=== PATIENT | female | born 1955 | race Caucasian/White ===

== ENCOUNTER → 2017-11-17 09:35 | Outpatient (CLI) | payer OTHER, SELFPAY ==
[2017-11-17 10:16] LABS: Add Manual Diff / Slide Review NO; Basophils Percent Auto 0.9 % (0-2); Eosinophils Percent Auto 2.8 % (2-4); Hematocrit 39.8 % (36-46); Hemoglobin 13.6 g/dL (12.0-16.0); Lymphocytes Percent Auto 34.4 % (25-40); Mean Corpuscular HGB Conc 34.3 % (30-36); Mean Corpuscular Hemoglobin 31.6 PG (26-34); Mean Corpuscular Volume 92.1 fL (80-100); Monocytes Percent Auto 9.5 % (3-14); Neutrophils Absolute Auto 2300 /uL (3000-5900); Neutrophils Percent Auto 52.4 % (50-75); Platelet Count 249 X10^3/uL (150-400); Red Blood Cell Count 4.32 X10^6/uL (4.0-5.2); Red Cell Distribution Width 12.9 % (11.6-14.8); White Blood Cell Count 4.4 X10^3/uL (4.5-11.0)
[2017-11-17 13:58] LABS: Erythrocyte Sedimentation Rate 4 MM/HR (0-20)
== END ==
PROVIDERS: Family Provider Nurse Practitioner Family; PCP Nurse Practitioner Family; Visit Provider Internal Medicine Cardiovascular Disease
DX: I50.9 Heart failure, unspecified (principal)
CPT/HCPCS: 36415; 85025; 85651; 87040

== ENCOUNTER 2018-02-14 09:41 | Emergency (ER) | payer OTHER, SELFPAY ==
[2018-02-14 09:50] VITALS: BP 170/86; PULSE 79; RESP 12; TEMP 36.4; O2SAT 99
--- NOTE | 2018-02-14 10:02 | ED.ABDPAIN ---
HPI - Abdominal Pain General Chief Complaint: Abdominal Pain Stated Complaint: pain under breast,thinks its her gallbladder Time Seen by Provider: 02/14/18 10:02 Source: patient Mode of arrival: ambulatory Limitations: no limitations History of Present Illness HPI narrative: Patient is a 63-year-old female who presents with left upper quadrant pain and thoracic back pain ongoing for the last 3 weeks. It never really goes away but does have worsening episodes. She denies chest pain at though she does have pain under her left breast. She has no shortness of breath or help heart palpitations. No dizziness lightheadedness nausea or vomiting. Her thoracic pain is seems to be under her left shoulder blade it does get worse when she lifts her left arm but does not get better when she lowers it. She has some numbness tingling in her hands she denies any injury. Related Data Home Medications Medication Instructions Recorded Confirmed aspirin 325 mg PO DAILY 02/14/18 02/14/18 atorvastatin [Lipitor] 20 mg PO DAILY 02/14/18 02/14/18 Previous Rx's Medication Instructions Recorded hydrochlorothiazide 12.5 mg PO QDAY #90 cap 03/08/16 losartan 50 mg PO QDAY #90 tab 06/30/16 tramadol 50 mg PO Q6H PRN #10 tab 02/14/18 Allergies Allergy/AdvReac Type Severity Reaction Status Date / Time No Known Drug Allergies Allergy Verified 02/14/18 10:07 Review of Systems Review of Systems All systems reviewed & are unremarkable except as noted in HPI and below Constitutional Denies chills, Denies fever(s), Denies lethargy and Denies weakness Cardiovascular Reports as per HPI, Denies dyspnea and Denies dyspnea on exertion Respiratory Denies cough, Denies dyspnea, Denies dyspnea on exertion and Denies wheezing Gastrointestinal Gastrointestinal: Denies abdominal pain, Denies change in bowel habits, Denies diarrhea, Denies nausea and Denies vomiting Musculoskeletal Denies back pain, Denies muscle weakness, Denies numbness and Denies tingling Integumentary/Breasts Denies pruritus, Denies erythema, Denies rash and Denies wounds Neurologic Denies numbness, Denies tingling and Denies weakness Allergic/Immunologic Denies wheezing PFSH Medical History Mitral valve disorder (Acute) Surgical History Hx of mitral valve replacement (Acute) Family History Brother Hypertension High cholesterol Brother Age: 53 Hypertension High cholesterol Father History of kidney cancer Heart disease Hypertension High cholesterol Grandfather Heart disease Mother Hypertension High cholesterol Grandfather Heart disease Sister Age: 63 Hypertension High cholesterol Sister Age: 67 Hypertension High cholesterol Exam Initial Vital Signs Initial Vital Signs: Vital Signs Temperature 97.5 F L 02/14/18 09:50 Pulse Rate 79 02/14/18 09:50 Respiratory Rate 12 02/14/18 09:50 Blood Pressure 170/86 H 02/14/18 09:50 Pulse Oximetry 99 02/14/18 09:50 GENERAL: Well-appearing, well-nourished and in no acute distress. HEENT: Head atraumatic,EOMI, pupils reactive, face symmetric, neck is supple no JVD CARDIOVASCULAR: Regular rate and rhythm without murmurs, rubs or gallops. Sternal scar on chest nontender RESPIRATORY: Breath sounds equal bilaterally, no wheezes rales or rhonchi. ABDOMEN: Soft, nontender. Normoactive bowel sounds all 4 quadrants. No guarding or rebound. Negative Laurent sign EXTREMITIES: Normal range of motion, no clubbing or edema. Neurovascularly intact BACK: No vertebral tenderness no step-offs. Mild pain to palpation under left scapular region NEUROLOGICAL: Alert and oriented x4.Normal gait and speech. Cranial nerves II through XII grossly intact. SKIN: Warm, dry, no laceration, no petechiae, no rashes or lesions. Scores HEART Score Heart Score history: Slightly Suspicious Heart Score EKG: Normal Heart Score Age: 45-64 years old Heart Score risk factors: 1-2 risk factors Heart Score troponin: < or = to normal limit Heart Score Total: 2 Course Orders Ordered: Discontinued Medications Aspirin (Aspirin Chew) 324 mg PO NOW ONE Stop: 02/14/18 10:12 Last Admin: 02/14/18 10:34 Dose: 324 mg Sodium Chloride (Normal Saline 0.9%) 1,000 mls @ 150 mls/hr IV CONT ANEL Last Infusion: 02/14/18 12:52 Dose: 0 mls/hr Admin: 02/14/18 10:34 Dose: 150 mls/hr Ketorolac Tromethamine (Toradol) 30 mg IV NOW ONE Stop: 02/14/18 11:42 Last Admin: 02/14/18 11:42 Dose: 30 mg Nitroglycerin (Nitrostat) 0.4 mg SL [id number] PRN PRN Reason: Chest Pain Last Admin: 02/14/18 10:34 Dose: 0.4 mg Vital Signs - 8 hr 02/14/18 09:50 02/14/18 10:34 02/14/18 10:37 Temperature 97.5 F L Pulse Rate 79 66 67 Respiratory Rate 12 18 Blood Pressure 170/86 H 132/81 Blood Pressure [Left Arm] 132/81 Pulse Oximetry 99 100 02/14/18 11:00 02/14/18 11:21 02/14/18 12:03 Temperature Pulse Rate 69 65 68 Respiratory Rate 18 18 Blood Pressure 104/85 Blood Pressure [Left Arm] 104/85 131/86 Pulse Oximetry 97 100 MDM - Abdominal Pain Lab Data Attestation: I reviewed the patient's lab results. Result diagrams: 02/14/18 10:30 02/14/18 10:30 Lab Results 02/14/18 02/14/18 Range/Units 10:30 10:30 WBC 5.1 (4.5-11.0) X10^3/uL RBC 4.59 (4.0-5.2) X10^6/uL Hgb 14.3 (12.0-16.0) g/dL Hct 42.0 (36-46) % MCV 91.7 (80-100) fL MCH 31.1 (26-34) PG MCHC 34.0 (30-36) % RDW 13.1 (11.6-14.8) % Plt Count 258 (150-400) X10^3/uL Neut % (Auto) 54.7 (50-75) % Lymph % (Auto) 33.9 (25-40) % [place] % (Auto) 9.2 (3-14) % Eos % (Auto) 1.2 L (2-4) % Baso % (Auto) 1.0 (0-2) % Neut # (Auto) 2800 L (8794-9044) /uL Sodium 146 H (137-145) mmol/L Potassium 3.9 (3.4-5.1) mmol/L Chloride 103 (98-107) mmol/L Carbon Dioxide 32 (22-32) mmol/L BUN 18 H (7-17) mg/dL Creatinine 0.60 (0.52-1.04) mg/dL Estimated GFR > 60.0 (>60) mL/min BUN/Creatinine Ratio 30.0 H (6-22) Glucose 132 H (80-110) mg/dL Calcium 9.9 (8.4-10.2) mg/dL Total Bilirubin 0.7 (0.2-1.3) mg/dL AST 25 (14-36) IU/L ALT 31 (9-52) IU/L Alkaline Phosphatase 78 (38-126) U/L Total Creatine Kinase 73 (30-135) U/L Troponin I < 0.012 (0.01-0.034) ng/mL B-Natriuretic Peptide < 100.0 (<100) Total Protein 8.3 H (6.3-8.2) g/dL Albumin 4.7 (3.5-5.0) g/dL Globulin 3.6 (1.7-4.1) g/dL Albumin/Globulin Ratio 1.3 (1.0-2.8) Lipase 72 (23-300) U/L Imaging Data Chest x-ray: Radiologist's impression: PROCEDURE: XR CHEST 1V INDICATIONS: chest pain TECHNIQUE: One view of the chest was acquired. COMPARISON: [facility], , CHEST 2 VIEW, 07/05/2012, 15:58. FINDINGS: Surgical changes and devices: Sternal wires. Lungs and pleura: No pleural effusions or pneumothorax. Lungs are clear. Mediastinum: Mediastinal contours appear normal. Heart size is slightly prominent. Bones and chest wall: No suspicious bony lesions. Overlying soft tissues appear unremarkable. IMPRESSION: No acute pulmonary process. Dictated by: Zoraida Sheikh M.D. on 02/14/2018 at 11:02 ECG Data Attestation: I personally reviewed and interpreted this ECG as follows: Prior ECG tracings: not available for review Interpretation: normal sinus rhythm rate 75 no T-wave inversions or ST changes compare MDM Narrative Medical decision making narrative: the patient is having some left upper quadrant pain ongoing for 3 weeks. Troponin EKG chest x-ray are negative. It also is worse with breathing and movement which is consistent with musculoskeletal pain. she is states that she has been taking ibuprofen 800 mg and Tylenol on a regular basis of for 1-2 weeks. Tramadol is offered to her, which she accepts. The pain also may be related to the beginnings of ulcer or gastritis. Recommend [id number] omeprazole I have discussed treatment plan with both patient and all questions have been addressed. Discharge Plan Departure Patient Disposition: Home Clinical Impression: Atypical chest pain Discharge Date/Time: 02/14/18 12:53 Interventions: ED Discharge Assessment Last Done: 02/14/18 12:53 Instructions: DI for Atypical Chest Pain Activity Restrictions/Additional Instructions: *You have been diagnosed with atypical chest pain *What to do: This is likely musculoskeletal or gastritis *Continue to take medications as directed Tramadol 1 tablet every 6 hr if needed for severe pain, this may be combined with Tylenol if needed Tylenol 500-650 mg every 4-6 hours if needed for [id number] pain Omeprazole 20 mg once a day 30 min prior to meal *Follow up with your primary care provider in 2-3 days *Return to ER if you should have increasing pain, shortness of breath, passing or any new, worsening or concerning symptoms Prescriptions: New tramadol 50 mg tablet 50 mg PO Q6H PRN (Reason: pain) Qty: 10 RF: 0 No Action hydrochlorothiazide 12.5 MG capsule 12.5 mg PO QDAY Qty: 90 RF: 0 losartan 50 MG tablet 50 mg PO QDAY Qty: 90 RF: 3 atorvastatin [Lipitor] 20 MG tablet 20 mg PO DAILY RF: 0 aspirin 325 mg Tablet 325 mg PO DAILY RF: 0 Referrals: Eliana Donato ARNP [Primary Care Provider] -
--- NOTE | 2018-02-14 10:11 | DI.RAD.S_ITS ---
PROCEDURE: XR CHEST 1V INDICATIONS: chest pain TECHNIQUE: One view of the chest was acquired. COMPARISON: [facility] , CHEST 2 VIEW, 07/05/2012, 15:58. FINDINGS: Surgical changes and devices: Sternal wires. Lungs and pleura: No pleural effusions or pneumothorax. Lungs are clear. Mediastinum: Mediastinal contours appear normal. Heart size is slightly prominent. Bones and chest wall: No suspicious bony lesions. Overlying soft tissues appear unremarkable. IMPRESSION: No acute pulmonary process. Dictated by: Zoraida Sheikh M.D. on 02/14/2018 at 11:02 Approved by: Zoraida Sheikh M.D. on 02/14/2018 at 11:02
[2018-02-14 10:34] VITALS: BP 132/81; PULSE 66
[2018-02-14] MEDS: ASPIRIN 81 MG TAB 324 MG PO (10:34)
[2018-02-14] MEDS: SODIUM CHLORIDE 0.9% 1,000 ML 150 ML IV (10:34)
[2018-02-14] MEDS: NITROGLYCERIN 0.4 MG SL TAB SL (10:34)
[2018-02-14 10:37] VITALS: BP 132/81; PULSE 67; RESP 18; O2SAT 100
[2018-02-14 10:41] LABS: Add Manual Diff / Slide Review NO; Eosinophils Percent Auto 1.2 % (2-4); Hemoglobin 14.3 g/dL (12.0-16.0); Lymphocytes Percent Auto 33.9 % (25-40); Mean Corpuscular Hemoglobin 31.1 PG (26-34); Mean Corpuscular Volume 91.7 fL (80-100); Monocytes Percent Auto 9.2 % (3-14); Neutrophils Absolute Auto 2800 /uL (3000-5900); Neutrophils Percent Auto 54.7 % (50-75); Platelet Count 258 X10^3/uL (150-400); Red Blood Cell Count 4.59 X10^6/uL (4.0-5.2); Red Cell Distribution Width 13.1 % (11.6-14.8); White Blood Cell Count 5.1 X10^3/uL (4.5-11.0)
[2018-02-14 10:51] LABS: Alanine Aminotransferase 31 IU/L (9-52); Albumin 4.7 g/dL (3.5-5.0); Albumin Globulin Ratio 1.3 (1.0-2.8); Alkaline Phosphatase 78 U/L (38-126); Aspartate Aminotransferase 25 IU/L (14-36); Bilirubin Total 0.7 mg/dL (0.2-1.3); Blood Urea Nitrogen 18 mg/dL (7-17); Calcium 9.9 mg/dL (8.4-10.2); Carbon Dioxide 32 mmol/L (22-32); Chloride 103 mmol/L (98-107); Creatine Kinase 73 U/L (30-135); Estimated Glomerular Filt Rate > 60.0 mL/min (>60); Globulin 3.6 g/dL (1.7-4.1); Glucose 132 mg/dL (80-110); HEMOLYSIS < 15 (0-50); Lipase 72 U/L (23-300); Potassium 3.9 mmol/L (3.4-5.1); Sodium 146 mmol/L (137-145); Total Protein 8.3 g/dL (6.3-8.2)
[2018-02-14 11:00] VITALS: BP 104/85; PULSE 69; RESP 18; O2SAT 97
[2018-02-14 11:03] LABS: Troponin I < 0.012 ng/mL (0.01-0.034)
[2018-02-14 11:15] LABS: B Type Natriuretic Peptide < 100.0 (<100)
[2018-02-14 11:21] VITALS: BP 104/85; PULSE 65
[2018-02-14] MEDS: KETOROLAC 60 MG/2 ML VIAL 30 MG IV (11:42)
[2018-02-14 12:03] VITALS: BP 131/86; PULSE 68; RESP 18; O2SAT 100
== END 2018-02-14 12:53 | disposition home or self-care (01) ==
PROVIDERS: Emergency Provider Emergency Medicine; Family Provider Nurse Practitioner Family; PCP Nurse Practitioner Family; Referring Provider Family Medicine
DX: R07.89 Other chest pain (principal)
CPT/HCPCS: 71045; 80053; 82550; 82553; 83690; 83880; 84484; 85025; 93005; 93010; 96361; 96374; 99283; 99285; J1885

== ENCOUNTER → 2018-10-05 09:39 | Outpatient (CLI) | payer OTHER, SELFPAY ==
--- NOTE | 2018-10-05 | DI.MG.S_ITS ---
BILATERAL DIGITAL SCREENING MAMMOGRAM 3D/2D WITH CAD: 10/05/2018 CLINICAL: Routine screening. Family history of breast cancer. Comparison is made to exams dated: 07/02/2016 mammogram - [facility], 03/07/2013 mammogram - [facility], and 03/20/2009 mammogram - [facility]. The tissue of both breasts is extremely dense, which lowers the sensitivity of mammography. Current study was also evaluated with a Computer Aided Detection (CAD) system. There is a benign biopsy clip in the right breast. There is a mole marker on both breasts. No significant masses, calcifications, or other findings are seen in either breast. There has been no significant interval change. IMPRESSION: NEGATIVE There is no mammographic evidence of malignancy. A 1 year screening mammogram is recommended. This exam was interpreted at Station ID: [id number]. NOTE: For mammograms, a report in lay terms will be sent to the patient. Approximately 15% of breast malignancies will not be visualized mammographically. In the management of a palpable breast mass, a negative mammogram must not discourage biopsy of a clinically suspicious lesion. Electronically Signed By: Gurinder jennings/phuong:10/05/2018 18:59:43 copy to: TITO SUTTON letter sent: Normal Exam ACR BI-RADS Category 1: Negative 3341F
== END ==
PROVIDERS: Family Provider Family Medicine; PCP Nurse Practitioner Family; Visit Provider Nurse Practitioner Family
DX: Z12.31 Encounter for screening mammogram for malignant neoplasm of breast (principal); Z80.3 Family history of malignant neoplasm of breast
CPT/HCPCS: 77063; 77067

== ENCOUNTER → 2021-02-27 08:11 | Outpatient (CLI) | payer MEDICARE, OTHER, SELFPAY ==
[2021-02-27 20:32] LABS: Rheumatoid Factor < 8.6 IU/mL (<12.0)
== END ==
PROVIDERS: Family Provider Family Medicine; PCP Family Medicine; Visit Provider Family Medicine
DX: M25.50 Pain in unspecified joint (principal)
CPT/HCPCS: 86430

== ENCOUNTER → 2021-04-13 10:31 | Outpatient (CLI) | payer MEDICARE, OTHER, SELFPAY ==
[2021-04-13 18:56] LABS: Add Manual Diff / Slide Review NO; Basophils Absolute Auto 0 /uL (0-100); Basophils Percent Auto 0.9 % (0-2); Eosinophils Absolute Auto 100 /uL (0-450); Eosinophils Percent Auto 1.6 % (2-4); Hematocrit 40.6 % (36-46); Hemoglobin 13.7 g/dL (12.0-16.0); Lymphocytes Absolute Auto 1600 /uL (1100-4500); Lymphocytes Percent Auto 33.5 % (25-40); Mean Corpuscular HGB Conc 33.6 % (30-36); Mean Corpuscular Hemoglobin 30.6 PG (26-34); Mean Corpuscular Volume 90.9 fL (80-100); Monocytes Absolute Auto 500 /uL (0-900); Monocytes Percent Auto 9.7 % (3-14); Neutrophils Absolute Auto 2600 /uL (1500-7000); Neutrophils Percent Auto 54.3 % (50-75); Platelet Count 261 X10^3/uL (150-400); Red Blood Cell Count 4.47 X10^6/uL (4.0-5.2); White Blood Cell Count 4.8 X10^3/uL (4.5-11.0)
[2021-04-13 19:08] LABS: Alanine Aminotransferase 26 IU/L (<35); Albumin 4.7 g/dL (3.5-5.0); Albumin Globulin Ratio 1.2 (1.0-2.8); Alkaline Phosphatase 91 U/L (38-126); Aspartate Aminotransferase 33 IU/L (14-36); BUN Creatinine Ratio 22.4 (6-22); Bilirubin Total 0.7 mg/dL (0.2-1.3); Blood Urea Nitrogen 15 mg/dL (7-17); Carbon Dioxide 32 mmol/L (22-32); Chloride 100 mmol/L (98-107); Cholesterol 274 mg/dL (140-199); Estimated Glomerular Filt Rate > 60.0 mL/min (>60); Globulin 3.9 g/dL (1.7-4.1); Glucose 137 mg/dL (80-110); HDL Cholesterol 78 mg/dL (40-60); HEMOLYSIS < 15 (0-50); LDL Cholesterol Calculated 173 mg/dL (<100); Potassium 4.1 mmol/L (3.4-5.1); Sodium 141 mmol/L (137-145); Total Protein 8.6 g/dL (6.3-8.2); Triglycerides 114 mg/dL (35-150)
[2021-04-13 19:11] LABS: Hemoglobin A1C% w Est Avg Glu 6.4 % (4.0-6.0)
== END ==
PROVIDERS: Family Provider Family Medicine; PCP Family Medicine; Visit Provider Family Medicine
DX: E11.59 Type 2 diabetes mellitus with other circulatory complications (principal); I25.10 Atherosclerotic heart disease of native coronary artery without angina pectoris; I15.2 Hypertension secondary to endocrine disorders; E78.5 Hyperlipidemia, unspecified
CPT/HCPCS: 80053; 80061; 83036; 85025

== ENCOUNTER → 2021-10-09 09:29 | Outpatient (CLI) | payer MEDICARE, OTHER, SELFPAY ==
[2021-10-09 19:06] LABS: Add Manual Diff / Slide Review NO; Basophils Absolute Auto 0 /uL (0-100); Basophils Percent Auto 0.8 % (0-2); Eosinophils Absolute Auto 0 /uL (0-450); Eosinophils Percent Auto 1.2 % (2-4); Hemoglobin 13.1 g/dL (12.0-16.0); Lymphocytes Absolute Auto 1400 /uL (1100-4500); Lymphocytes Percent Auto 39.8 % (25-40); Mean Corpuscular HGB Conc 34.5 % (30-36); Mean Corpuscular Hemoglobin 31.4 PG (26-34); Mean Corpuscular Volume 91.1 fL (80-100); Monocytes Absolute Auto 400 /uL (0-900); Monocytes Percent Auto 10.3 % (3-14); Neutrophils Absolute Auto 1700 /uL (1500-7000); Neutrophils Percent Auto 47.9 % (50-75); Platelet Count 254 X10^3/uL (150-400); Red Blood Cell Count 4.18 X10^6/uL (4.0-5.2); White Blood Cell Count 3.6 X10^3/uL (4.5-11.0)
[2021-10-09 19:12] LABS: Alanine Aminotransferase 22 IU/L (<35); Albumin 4.6 g/dL (3.5-5.0); Albumin Globulin Ratio 1.4 (1.0-2.8); Alkaline Phosphatase 86 U/L (38-126); Aspartate Aminotransferase 31 IU/L (14-36); Bilirubin Total 0.7 mg/dL (0.2-1.3); Blood Urea Nitrogen 13 mg/dL (7-17); Calcium 9.4 mg/dL (8.4-10.2); Carbon Dioxide 30 mmol/L (22-32); Chloride 101 mmol/L (98-107); Estimated Glomerular Filt Rate > 60 mL/min (>60); Globulin 3.4 g/dL (1.7-4.1); Glucose 143 mg/dL (80-110); HEMOLYSIS 15 (0-50); Potassium 3.8 mmol/L (3.4-5.1); Sodium 141 mmol/L (137-145)
[2021-10-09 19:22] LABS: Hemoglobin A1C% w Est Avg Glu 6.7 % (4.0-6.0)
[2021-10-09 19:42] LABS: TSH w/ Reflex to FT4 1.17 uIU/mL (0.47-4.68)
[2021-10-09 20:32] LABS: Cholesterol 214 mg/dL (140-199); HDL Cholesterol 81 mg/dL (40-60); LDL Cholesterol Calculated 112 mg/dL (<100); Triglycerides 107 mg/dL (35-150)
== END ==
PROVIDERS: Family Provider Family Medicine; PCP Family Medicine; Visit Provider Family Medicine
DX: Z95.2 Presence of prosthetic heart valve (principal); E11.69 Type 2 diabetes mellitus with other specified complication; F41.9 Anxiety disorder, unspecified; E78.5 Hyperlipidemia, unspecified; E11.59 Type 2 diabetes mellitus with other circulatory complications; I15.2 Hypertension secondary to endocrine disorders; I25.10 Atherosclerotic heart disease of native coronary artery without angina pectoris
CPT/HCPCS: 80053; 80061; 83036; 84443; 85025

== ENCOUNTER → 2021-12-23 10:46 | Outpatient (CLI) | payer MEDICARE, OTHER, SELFPAY ==
--- NOTE | 2021-12-23 10:47 | DI.MG.S_ITS ---
BILATERAL DIGITAL SCREENING MAMMOGRAM 3D/2D WITH CAD: 12/23/2021 CLINICAL: Routine screening. Family history of breast cancer. Comparison is made to exams dated: 10/05/2018 mammogram, 07/02/2016 mammogram - [facility], 03/07/2013 mammogram - [facility], and 03/20/2009 mammogram - [facility]. The tissue of both breasts is extremely dense, which lowers the sensitivity of mammography. Current study was also evaluated with a Computer Aided Detection (CAD) system. There is a biopsy clip in the right breast. There is a mole marker on the left breast. No significant masses, calcifications, or other findings are seen in either breast. There has been no significant interval change. IMPRESSION: NEGATIVE There is no mammographic evidence of malignancy. A 1 year screening mammogram is recommended. Based on Tyrer-Cuzick model (a risk assessment model), the patient's lifetime risk is 23.6% and her 10 year risk is 11.9%. If a patient has an elevated risk, a more comprehensive evaluation should be considered and/or a referral to a genetic counselor. The [place] [employer], [place] [employer], and NCCN Guidelines advise the consideration of Breast MRI as an adjunct to screening mammography in patients whose Lifetime risk to develop breast cancer is 20% or higher. This exam was interpreted at Station ID: [id number]. NOTE: For mammograms, a report in lay terms will be sent to the patient. Approximately 15% of breast malignancies will not be visualized mammographically. In the management of a palpable breast mass, a negative mammogram must not discourage biopsy of a clinically suspicious lesion. Electronically Signed By: Vel Resendiz acr/penrad:12/23/2021 11:20:00 copy to: TITO SUTTON letter sent: Normal Exam ACR BI-RADS Category 1: Negative [id number]
== END ==
PROVIDERS: Family Provider Family Medicine; PCP Family Medicine; Referring Provider Physician Assistant; Visit Provider Physician Assistant
DX: Z12.31 Encounter for screening mammogram for malignant neoplasm of breast (principal); Z80.3 Family history of malignant neoplasm of breast
CPT/HCPCS: 77063; 77067

== ENCOUNTER → 2021-12-31 09:31 | Outpatient (CLI) | payer MEDICARE, OTHER, SELFPAY ==
[2021-12-31 20:09] LABS: Add Manual Diff / Slide Review NO; Basophils Absolute Auto 0 /uL (0-100); Basophils Percent Auto 0.9 % (0-2); Eosinophils Absolute Auto 100 /uL (0-450); Eosinophils Percent Auto 2.5 % (2-4); Hematocrit 37.8 % (36-46); Hemoglobin 12.8 g/dL (12.0-16.0); Lymphocytes Absolute Auto 1400 /uL (1100-4500); Lymphocytes Percent Auto 29.1 % (25-40); Mean Corpuscular HGB Conc 33.8 % (30-36); Mean Corpuscular Hemoglobin 31.1 PG (26-34); Mean Corpuscular Volume 91.9 fL (80-100); Monocytes Absolute Auto 500 /uL (0-900); Monocytes Percent Auto 10.3 % (3-14); Neutrophils Absolute Auto 2700 /uL (1500-7000); Neutrophils Percent Auto 57.2 % (50-75); Platelet Count 256 X10^3/uL (150-400); Red Blood Cell Count 4.11 X10^6/uL (4.0-5.2); White Blood Cell Count 4.7 X10^3/uL (4.5-11.0)
[2021-12-31 20:18] LABS: Alanine Aminotransferase 20 IU/L (<35); Albumin 4.4 g/dL (3.5-5.0); Albumin Globulin Ratio 1.4 (1.0-2.8); Alkaline Phosphatase 82 U/L (38-126); Aspartate Aminotransferase 29 IU/L (14-36); BUN Creatinine Ratio 26.5 (6-22); Bilirubin Total 0.6 mg/dL (0.2-1.3); Blood Urea Nitrogen 18 mg/dL (7-17); Calcium 9.1 mg/dL (8.4-10.2); Carbon Dioxide 31 mmol/L (22-32); Chloride 101 mmol/L (98-107); Estimated Glomerular Filt Rate > 60 mL/min (>60); Globulin 3.2 g/dL (1.7-4.1); Glucose 144 mg/dL (80-110); HEMOLYSIS < 15 (0-50); Sodium 139 mmol/L (137-145); Total Protein 7.6 g/dL (6.3-8.2)
[2021-12-31 20:21] LABS: Hemoglobin A1C% w Est Avg Glu 6.5 % (4.0-6.0)
== END ==
PROVIDERS: Family Provider Family Medicine; PCP Family Medicine; Visit Provider Physician Assistant
DX: E11.69 Type 2 diabetes mellitus with other specified complication (principal); E11.59 Type 2 diabetes mellitus with other circulatory complications; E78.5 Hyperlipidemia, unspecified; F41.9 Anxiety disorder, unspecified; I15.2 Hypertension secondary to endocrine disorders
CPT/HCPCS: 80053; 83036; 85025

== ENCOUNTER → 2022-08-18 12:06 | Outpatient (CLI) | payer MEDICARE, OTHER, SELFPAY ==
[2022-08-18 19:34] LABS: BUN Creatinine Ratio 27.8 (6-22); Blood Urea Nitrogen 22 mg/dL (7-17); Calcium 9.1 mg/dL (8.4-10.2); Carbon Dioxide 31 mmol/L (22-32); Chloride 97 mmol/L (98-107); Estimated Glomerular Filt Rate > 60 mL/min (>60); Glucose 116 mg/dL (80-110); HEMOLYSIS < 15 (0-50); Potassium 4.2 mmol/L (3.4-5.1); Sodium 135 mmol/L (137-145)
[2022-08-18 20:21] LABS: Vitamin B12 689 pg/mL (239-931)
== END ==
PROVIDERS: Family Provider Family Medicine; PCP Family Medicine; Visit Provider Physician Assistant
DX: I10 Essential (primary) hypertension (principal); R20.0 Anesthesia of skin
CPT/HCPCS: 80048; 82607

== ENCOUNTER → 2022-08-19 15:51 | Outpatient (CLI) | payer MEDICARE, OTHER, SELFPAY ==
--- NOTE | 2022-08-19 15:52 | DI.MRI.S_ITS ---
PROCEDURE: MR HAND RT WO/W CON INDICATIONS: bone lesion, 3rd phalynx, per xray TECHNIQUE: Noncontrast coronal T1 spin echo and T2 fast spin echo with fat saturation, axial proton density fast spin echo and T2 fast spin echo with fat saturation, axial T1 spin echo with fat saturation, sagittal T1 spin echo and STIR through the hand and fingers. Post-contrast axial, coronal, and sagittal T1 spin echo through the hand and fingers. COMPARISON: [facility] CR, XR HAND RT MIN 3V, 07/22/2022, 9:43. FINDINGS: Image quality: Excellent. Bones: Poorly defined hypointense structure is seen along the volar radial aspect of the 3rd proximal phalangeal head, corresponding to the sclerotic lesion seen on radiographs from 07/22/2022. The lesion appears to be located outside of the bone with chronic remodeling or pressure erosion of the adjacent 3rd proximal phalanx. The lesion measures approximately 8 x 7 x 6 mm and demonstrates hypointense signal on all sequences corresponding to calcifications radiographically. No definite postcontrast enhancement is seen, although inhomogeneous fat suppression is seen in the finger. The lesion is deep to the flexor tendons. No acute trabecular bone injury or fracture. Cystic changes are seen within the 4th distal phalangeal base that are most likely related to chronic degenerative changes. Moderate degenerative changes are seen at the first carpometacarpal joint and mild scattered degenerative changes are seen in the interphalangeal joints of the fingers. Mild focal subchondral edema in the 3rd metacarpal head. Soft tissues: There is a mild tenosynovitis of the extensor pollicis longus tendon at the level of the 1st proximal phalanx. Lobular ganglion cyst is seen along the dorsal ulnar aspect of the 1st metacarpal head measuring approximately 14 x 9 mm. A 8 x 3 mm ganglion cyst is seen along the volar aspect of the 3rd carpometacarpal joint. Visualized flexor and extensor tendons are otherwise intact. The musculature of the hand is normal in signal intensity and bulk. No enhancing soft tissue mass. IMPRESSION: 1. Hypointense calcified 8 mm extraosseous lesion is seen along the volar aspect of the 3rd proximal phalangeal head with chronic remodeling of the adjacent bone. No definite contrast enhancement is seen. The MR appearance is nonspecific and may represent a loose body or dystrophic calcification versus other benign or malignant calcified masses. 2. Qjzg-ay-[id number] background osteoarthrosis. 3. Mild tenosynovitis of the flexor pollicis longus tendon. 4. Lobular ganglion cyst adjacent to the 1st metacarpal head extending proximally from the metacarpophalangeal joint. A few additional small ganglion cysts are seen surrounding the wrist. Approved by: Hi Temple M.D. on 08/20/2022 at 8:51
== END ==
PROVIDERS: Family Provider Family Medicine; PCP Family Medicine; Referring Provider Physician Assistant; Visit Provider Physician Assistant
DX: M89.9 Disorder of bone, unspecified (principal); M19.041 Primary osteoarthritis, right hand; M65.841 Other synovitis and tenosynovitis, right hand; M67.441 Ganglion, right hand; M67.431 Ganglion, right wrist
CPT/HCPCS: 73220; A9579

== ENCOUNTER → 2022-08-25 10:28 | Outpatient (CLI) | payer MEDICARE, OTHER, SELFPAY ==
[2022-08-25 19:38] LABS: BUN Creatinine Ratio 31.9 (6-22); Blood Urea Nitrogen 22 mg/dL (7-17); Calcium 9.6 mg/dL (8.4-10.2); Carbon Dioxide 33 mmol/L (22-32); Chloride 99 mmol/L (98-107); Estimated Glomerular Filt Rate > 60 mL/min (>60); Glucose 93 mg/dL (80-110); HEMOLYSIS < 15 (0-50); Potassium 4.1 mmol/L (3.4-5.1); Sodium 140 mmol/L (137-145)
== END ==
PROVIDERS: Family Provider Family Medicine; PCP Family Medicine; Visit Provider Physician Assistant
DX: E87.1 Hypo-osmolality and hyponatremia (principal)
CPT/HCPCS: 80048

== ENCOUNTER → 2022-10-05 10:37 | Outpatient (CLI) | payer MEDICARE, OTHER, SELFPAY ==
--- NOTE | 2022-10-20 15:58 | DIAB.MNT ---
Initial Diabetes Medical Nutrition Therapy Assessment Name: Tracee Wilson Date: 10/05/22 Time: 1105a-12p Dx: Type II Diabetes Provider: Lubna Easley presents for initial DM visit. +FH of paternal Dm. PMH of DM for over one year, but endorses prediabetes dx for a long time. Also endorses PMH of GDM with first . States she eats pretty healthy but wants to know how to balance her meals. Also interested in learning more about label reading. Diet Recall: 8a: low sugar cereal with yogurt and berries 9a: 1.5c popcorn or nuts or low carb bar 2p: salad with chicken +/- beans with 1/2c quinoa OR half sandwich with 1c chips OR lentil soup OR ramen 6-7p: pro, veggies 1 sweet potato OR 2c pasta 8p: berries and yogurt OR apple and PB OR chocolate OR tangerine Beverages: water 8+ glasses per day, sparkling water, coffee with 2% milk and plant based creamer, tea with tsp honey Anthropometrics: Ht: 65 Wt: 148# last PCP visit Physical Activity: Walks daily for 30-60 mins Self-Monitoring Blood Glucose: Mostly FBG to report. All in goal or close to <130mg/dl with exception of one 175mg/dl. Unclear if this was accurate. Date Pre Post Pre Post Pre Post HS 09/28 131 09/29 175 127 09/30 140 10/01 130 10/02 133 10/03 124 102 10/04 130 Diabetes Medications: Metformin XR 500mg Pertinent Labs: HgA1c 6.7% 07/2022 6.5% 12/2021 Past Medical History: (Last Updated 08/25/22 @ 10:32 by Amara Calvo PA-C) 3-vessel CAD Cardiac murmur due to mitral valve disorder Cervical radiculopathy Congenital melanocytic nevus Hyperlipidemia, unspecified Mastitis, left, acute Microhematuria Mitral valve disorder Neoplasm of skin Paroxysmal atrial fibrillation Renal cyst, right Nutrition Rx: Carbohydrates: Meal:30-45g Snack:15-30g Nutrition Diagnosis: - Predicted excessive CHO intake r/t nutrition knowledge deficit aeb diet recall Intervention: This participant was very receptive. Provided appropriate educational handouts. Discussed the following topics: Completed intake assessment. Discussed barriers to care. Pathophysiology of T2DM HgA1c, its correlation to blood glucose numbers, and rationale for goal Importance of self-monitoring, how often, and when to check. Suggested checking at different times to evaluate meals Plate Method, impact of macronutrients on blood sugar, meal timing, carbohydrate counting, pairing macronutrients and spreading out carbohydrates for better blood glucose management Label reading for net carbs Recommended servings for carbohydrates at meals and snacks Brainstormed appropriate meal plan based on food preferences Role of physical activity and following provider guidelines for safety Created SMART goals for patient self-care and success. Goals: Read food labels for net carbs Measure portions Consider resistance training 1-2x per week Follow-up: EZRA BENNETT follow-up prn. Tracee would like to follow-up prn. Provided my card and encouraged her to call or message for questions or follow-up needs. Griselda Castillo, EZRA, CDCES Certified Diabetes Care and Bog Worker P: [phone] Thank you for this referral
== END ==
PROVIDERS: Absent Provider Family Medicine; Family Provider Family Medicine; PCP Family Medicine; Referring Provider Physician Assistant; Visit Provider Physician Assistant
DX: E11.9 Type 2 diabetes mellitus without complications (principal); Z79.84 Long term (current) use of oral hypoglycemic drugs; Z71.3 Dietary counseling and surveillance
CPT/HCPCS: 97802

== ENCOUNTER 2022-11-02 08:35 | Emergency (ER) | payer MEDICARE, OTHER, SELFPAY ==
[2022-11-02] VITALS (7 sets, daily range): BP systolic 163–197; BP diastolic 76–92; PULSE 70–88; RESP 16; TEMP 36.9; O2SAT 96–99; BMI 24.6
--- NOTE | 2022-11-02 09:07 | PC.NURSE ---
pt does have small bruise on upper outer thigh. but she states the pain started in her back and thigh and is now down to her santos. she describes the pain as worse at her santos, reminiscent of shingles.
--- NOTE | 2022-11-02 09:18 | ED.EXTPRO ---
HPI - Extremity Problem General Chief complaint: Extremity Problem,Nontraumatic Stated complaint: right leg pain, tingling 5 days Time Seen by Provider: 11/02/22 09:17 Source: patient Mode of arrival: Ambulatory History of Present Illness HPI Narrative: This is a 67-year-old female with history of hypertension, prediabetes with prior mitral valve repair. Patient states she has had right leg pain and tingling for the past 5 days. She states it started more in her back into her right upper thigh and then significantly worse down into the calf. She states the pain in her calf has been the most significant. She is had pain sometimes in her right back and thigh but the calf is new. She denies any weakness. She states it is painful to weightbear on her calf. Patient states she is able to ambulate but is very uncomfortable. She is had trouble finding physicians comfort and finds herself most comfortable when she lays with her hip and knee flexed. Patient denies any weakness. No loss of sensation. She denies any difficulty with movement. She states movement hurts but it does not seem to exacerbate the pain. She is not appreciate any swelling coronavirus redness or other changes to her skin. No rashes. She has had shingles before and states the pain her santos feels similar to that. Patient takes aspirin daily, amlodipine, losartan, metformin she is had prior mitral valve repair, tonsillectomy. No tobacco she does drink alcohol, no illicit. She is tried Advil with minimal change, she would leave which was most helpful and tried Tylenol PM last night which was not. She presents today as it has been persisting. She notes she did have trip to [place] that they drove in the last several weeks. She has not had any falls but notes she bumped into something and to get a bruise on her right hip which has been present. Patient has had some similar symptoms in the past but not down into her thigh. Related Data Home Medications Medication Instructions Recorded Confirmed aspirin 81 mg tablet,delayed 81 mg PO DAILY 02/24/21 10/13/21 release (Adult Low Dose Aspirin) Previous Rx's Medication Instructions Recorded diclofenac sodium 1 % topical gel 2 g topical QID #100 grams 01/05/22 (Voltaren Arthritis Pain) blood sugar diagnostic (Blood #100 ea 01/12/22 Glucose Test strips) lancets 30 gauge and blood glucose #200 ea 01/12/22 strips combo pack blood-glucose meter (True Metrix #1 ea 02/04/22 Glucose Meter kit) atorvastatin 20 mg tablet See Rx Instructions .Route 04/12/22 .COMPLEX #90 tabs metformin 500 mg tablet,extended See Rx Instructions .Route 04/20/22 release 24 hr .COMPLEX #90 tabs amlodipine 5 mg tablet 5 mg PO DAILY #90 tabs 07/22/22 losartan 100 mg tablet 100 mg PO DAILY #30 tabs 07/22/22 fluticasone propionate 50 2 spray intranasal DAILY #16 grams 07/27/22 mcg/actuation nasal spray,suspension (Flonase Allergy Relief) gabapentin 100 mg capsule 100 mg PO TID #30 caps 11/02/22 (Neurontin) Allergies Allergy/AdvReac Type Severity Reaction Status Date / Time No Known Drug Allergies Allergy Verified 11/02/22 08:49 Review of Systems Review of Systems ROS Unobtainable: All systems reviewed & are unremarkable except as noted in HPI and below Patient History Medical History 3-vessel CAD Cardiac murmur due to mitral valve disorder Cervical radiculopathy Congenital melanocytic nevus Hyperlipidemia, unspecified Mastitis, left, acute Microhematuria Mitral valve disorder Neoplasm of skin Paroxysmal atrial fibrillation Renal cyst, right Surgical History Hx of mitral valve replacement Family History Brother Hypertension High cholesterol Brother Age: 58 Hypertension High cholesterol Father History of kidney cancer Heart disease Hypertension High cholesterol Grandfather Heart disease Mother Hypertension High cholesterol Grandfather Heart disease Sister Age: 68 Hypertension High cholesterol Sister Age: 72 Hypertension High cholesterol Social History Smoking Status: Never smoker Smoking Status: Never smoker alcohol intake frequency: a few times a week Substance Use Type: does not use Exam Narrative Exam Narrative: GENERAL: Alert and oriented x three, female in mild distress. HEENT: Head normocephalic, atraumatic, EOMI, pupils reactive, face symmetric, moist mucous membranes NECK: Supple, full range of motion CARDIOVASCULAR: Regular rate and rhythm without murmurs, rubs or gallops. RESPIRATORY: Breath sounds equal bilaterally, no wheezes rales or rhonchi. ABDOMEN: Soft, nontender. Normoactive bowel sounds all 4 quadrants. No guarding or rebound, rigidity, no mass : No CVA tenderness BACK: No cervical, thoracic or lumbar vertebral point tenderness. Patient has normal range of motion. Patient's gait is normal. Rectal exam is deferred. Muscle strength is 5/5 in lower extremities, DTRs are 2/4 and lower extremities. Dorsalis pedis and tibialis pulses are 2+ and lower extremities. Sensation is intact in the lower extremities. Normal plantar and dorsiflexion. EXTREMITIES: Normal range of motion, no clubbing or edema. Neurovascularly intact. Patient has small area ecchymosis over the greater trochanter. No swelling or change in circumference from right compared to left. No rash, erythema or other skin changes noted. NEUROLOGICAL: Cranial nerves II through XII grossly intact. Moving all extremities SKIN: Warm, dry, no petechiae, no rashes or lesions. Initial Vital Signs Initial Vital Signs: Vital Signs Pulse Rate 88 11/02/22 08:47 Pulse Oximetry 99 11/02/22 08:47 Course Orders Ordered: ED Orders 11/02/22 09:36 US periph venous low extrem rt Stat XR hip w pel if done RT 2V Stat Discontinued Medications Ketorolac Tromethamine (Ketorolac 30 Mg/Ml Vial) 30 mg IM NOW ONE Stop: 11/02/22 09:38 Last Admin: 11/02/22 10:02 Dose: 30 mg Documented By: NR Vital Signs Vital signs: Vital Signs - 8 hr 11/02/22 08:49 11/02/22 08:47 11/02/22 09:00 Temperature 98.5 F Pulse Rate 87 88 Respiratory Rate 16 Blood Pressure 197/92 H 163/80 H Pulse Oximetry 98 99 Oxygen Delivery Method Room Air 11/02/22 09:00 11/02/22 09:30 11/02/22 09:31 Temperature Pulse Rate 82 76 Respiratory Rate Blood Pressure 180/76 H Pulse Oximetry 97 96 Oxygen Delivery Method 11/02/22 09:31 11/02/22 10:00 11/02/22 10:00 Temperature Pulse Rate 76 71 Respiratory Rate Blood Pressure 182/88 H Pulse Oximetry 97 98 Oxygen Delivery Method 11/02/22 10:30 Temperature Pulse Rate 70 Respiratory Rate Blood Pressure Pulse Oximetry 98 Oxygen Delivery Method MDM - Extremity (Nontraumatic) Imaging Data US - DVT: Radiologist's Impression: Close Vascular Ultrasound (Signed) Zoraida Sheikh - 11/02/22 Hip X-Ray (Signed) MigueJeff - 11/02/22 Hand MRI (Signed) Hi Temple - 08/19/22 Shoulder X-Ray (Signed) Kathryn Howell - 07/22/22 Hand X-Ray (Signed) Kathryn Howell - 07/22/22 Hand X-Ray (Signed) Kathryn Howell - 07/22/22 Mammogram Screening (Signed) Vel Resendiz - 12/23/21 Outside DI 04/20/21 Mammogram Screening (Signed) Gurinder Victor - 10/05/18 Chest X-Ray (Signed) Zoraida Sheikh - 02/14/18 Launch?[address] [address] Ultrasound Report Signed Patient: Tracee Wilson MR#: [id number] : 1955 Acct:[id number] Age/Sex: 67 / F Date of Service: 11/02/22 Loc: Accession Number: [id number] ?? Procedure: US periph venous low extrem rt Ordering Provider: Edwige Barnes D.O. PROCEDURE:? US PERIPH VENOUS LOW EXTREM RT ? INDICATIONS:? right leg pain x 1 week, recent driving ? TECHNIQUE:? Real-time imaging, as well as color and pulse Doppler interrogation, were performed of the lower extremity deep veins from the inguinal ligament to the popliteal fossa.? ? COMPARISON:? None. ? FINDINGS:? The common femoral, femoral and popliteal veins are normally compressible, and free of intraluminal thrombus.? Color and pulse Doppler demonstrate normal phasic intraluminal flow.? There is normal augmentation response to distal compression maneuver. ? ? IMPRESSION:? No deep venous thrombosis. ? ? Dictated by: Zoraida Sheikh M.D. on 11/02/2022 at 10:17 ? ? Approved by: Zoraida Sheikh M.D. on 11/02/2022 at 10:17?? Extremity x-ray #1: Radiologist's Impression: [address] [address] XRay Report Signed Patient: Tracee Wilson MR#: [id number] : 1955 Acct:[id number] Age/Sex: 67 / F Date of Service: 11/02/22 Loc: ED Accession Number: [id number] ?? Procedure: XR hip w pel if done RT 2V Ordering Provider: Edwige Barnes D.O. PROCEDURE:? XR HIP W PEL IF DONE RT 2V ? INDICATIONS:? right leg/hip pain ? TECHNIQUE:? 2 views of the hip were acquired.? ? COMPARISON:? None. ? FINDINGS:? ? Bones:? Moderate arthrosis bilaterally.? No displaced fracture or dislocation. ? Soft tissues:? No suspicious soft tissue calcifications or masses.? ? IMPRESSION:? Moderate bilateral arthrosis.? No acute radiographic abnormality.? If there is high concern for further derangement, consider MRI evaluation. ? ? Dictated by: Jeff Camarena M.D. on 11/02/2022 at 10:05 ? ? Approved by: Jeff Camarena M.D. on 11/02/2022 at 10:05?? MDM Narrative Medical decision making narrative: This is a 67-year-old female who presents with complaint of right leg pain, tingling for the past 5 days that started in her back down her leg and into her calf. She is had similar symptoms but never in her calf. Suspect more sciatica or nerve impingement in her back. Patient did have long distance travels so plan for DVT study, pelvis with right hip. Patient does not have any red flag symptoms necessitating emergent MRI at this time. Pain medication is mildly helpful. Discussed with patient I suspect her symptoms are more consistent with a radiculopathy or sciatica she has good strength but does have pain with some tingling. She is no other red flag symptoms at this time. DVT ultrasound is negative, right pelvis and hip was obtained she did have a little bit of bruising no fracture she does have some arthropathy. Patient and I discussed can try Neurontin to see if this is helpful, given referral to Dr. Gutierres's recommended to follow up with primary care for further workup, PT, etc.. Discussed patient can continue with the Aleve and can take Tylenol with this if needed. We also discussed return precautions. Discharge Plan Departure Patient Disposition: Home Clinical Impression: Leg pain, right Instructions: DI for Lumbar Radiculopathy Activity Restrictions/Additional Instructions: Follow-up with your physician for recheck and further workup and treatment. Please call for an appointment. You may continue Aleve and or Tylenol as needed for pain. I would recommend Neurontin 1 tablet every 8 hours while your pain is persisting. This medication works best if taken regularly. It can be titrated to higher doses if helpful but not relieving your pain, talk with your physician if you need to do this. Prescription sent to [facility] in [place]. Please return for fevers, rapidly worsening or uncontrolled pain, new numbness, loss of sensation, weakness inability to lift your foot or leg, inability to ambulate, loss of bowel or bladder control, numbness in the groin, or other new or concerning changes Prescriptions: New gabapentin [Neurontin] 100 mg capsule 100 mg PO TID Qty: 30 0RF No Action (DME) Blood Glucose Test Strip See Rx Instructions .Route Qty: 100 1RF Rx Instructions: Check Three times a day (DME) lancets-blood glucose strips 30 gauge combo pack See Rx Instructions .Route Qty: 200 0RF Rx Instructions: Check Three times a day (DME) blood-glucose meter [True Metrix Glucose Meter] Kit See Rx Instructions .Route Qty: 1 0RF Rx Instructions: check blood sugar three times daily atorvastatin 20 mg tablet See Rx Instructions .ROUTE .COMPLEX Qty: 90 3RF Dose Instruction: TAKE ONE TABLET BY MOUTH ONCE DAILY Rx Instructions: TAKE ONE TABLET BY MOUTH ONCE DAILY metformin 500 mg tablet extended release 24 hr See Rx Instructions .ROUTE .COMPLEX Qty: 90 3RF Dose Instruction: TAKE ONE TABLET BY MOUTH ONCE DAILY Rx Instructions: TAKE ONE TABLET BY MOUTH ONCE DAILY aspirin [Adult Low Dose Aspirin] 81 mg tablet,delayed release (DR/EC) 81 mg PO DAILY Patient Comments: takes 1/2 Aspirin diclofenac sodium [Voltaren Arthritis Pain] 1 % gel 2 g topical QID Qty: 100 1RF Rx Instructions: apply to single elbow, wrist or hand; for hand includes palm/fingers/back of hand fluticasone propionate [Flonase Allergy Relief] 50 mcg/actuation spray,suspension 2 spray intranasal DAILY Qty: 16 0RF Rx Instructions: administer into each nostril losartan 100 mg tablet 100 mg PO DAILY Qty: 30 11RF amlodipine 5 mg tablet 5 mg PO DAILY Qty: 90 3RF Referrals: Amara Calvo PA-C [Primary Care Provider] - Angus Gutierres DO [Physician] - Stand Alone Forms: Patient Portal/API
--- NOTE | 2022-11-02 09:36 | DI.RAD.S_ITS ---
PROCEDURE: XR HIP W PEL IF DONE RT 2V INDICATIONS: right leg/hip pain TECHNIQUE: 2 views of the hip were acquired. COMPARISON: None. FINDINGS: Bones: Moderate arthrosis bilaterally. No displaced fracture or dislocation. Soft tissues: No suspicious soft tissue calcifications or masses. IMPRESSION: Moderate bilateral arthrosis. No acute radiographic abnormality. If there is high concern for further derangement, consider MRI evaluation. Dictated by: Jeff Camarena M.D. on 11/02/2022 at 10:05 Approved by: Jeff Camarena M.D. on 11/02/2022 at 10:05
--- NOTE | 2022-11-02 09:36 | DI.US.S_ITS ---
PROCEDURE: US PERIPH VENOUS LOW EXTREM RT INDICATIONS: right leg pain x 1 week, recent driving TECHNIQUE: Real-time imaging, as well as color and pulse Doppler interrogation, were performed of the lower extremity deep veins from the inguinal ligament to the popliteal fossa. COMPARISON: None. FINDINGS: The common femoral, femoral and popliteal veins are normally compressible, and free of intraluminal thrombus. Color and pulse Doppler demonstrate normal phasic intraluminal flow. There is normal augmentation response to distal compression maneuver. IMPRESSION: No deep venous thrombosis. Dictated by: Zoraida Sheikh M.D. on 11/02/2022 at 10:17 Approved by: Zoraida Sheikh M.D. on 11/02/2022 at 10:17
[2022-11-02] MEDS: KETOROLAC 30 MG/ML VIAL IM (10:02)
== END 2022-11-02 11:03 | disposition home or self-care (01) ==
PROVIDERS: Emergency Provider Emergency Medicine; Family Provider Family Medicine; PCP Physician Assistant
DX: M79.604 Pain in right leg (principal); M54.50 Low back pain, unspecified
CPT/HCPCS: 73502; 93971; 96372; 99283; J1885

== ENCOUNTER 2022-11-08 12:03 | Emergency (ER) | payer MEDICARE, OTHER, SELFPAY ==
[2022-11-08 12:22] VITALS: BP 154/83; PULSE 79; RESP 16; TEMP 36.4; O2SAT 99; BMI 24.1
--- NOTE | 2022-11-08 12:38 | PC.NURSE ---
pt has been taking her gabapentin 3x/day and aleve 4x per day. but pain is worse at night. pt is unable to sleep. has appt in 2 days but pain was so bad at night [place]
--- NOTE | 2022-11-08 18:25 | ED.EXTPRO ---
HPI - Extremity Problem <Kelsey Small PA-C - Last Filed: 11/08/22 18:48> General Chief complaint: Extremity Problem,Nontraumatic Stated complaint: Right leg in pain by santos Time Seen by Provider: 11/08/22 12:29 Source: patient Mode of arrival: Ambulatory History of Present Illness HPI Narrative: 67-year-old female with past medical history hyperlipidemia, hypertension, osteoarthritis presents to the ED with right lower leg pain. Patient was seen in the ED for hip and right leg pain on 11/02/2022, prescribe gabapentin for the pain, which is likely from diabetic neuropathy. X-rays and ultrasound showed no fracture/dislocation/DVTs. Patient states that the gabapentin was not effective and patient has been taking Aleve in addition to it with no relief. Patient states she was unable to sleep last night which brought her to the ED. Patient has a appointment with her PCP in 2 days, however says she can not tolerate the pain until then. Related Data Home Medications Medication Instructions Recorded Confirmed aspirin 81 mg tablet,delayed 81 mg PO DAILY 02/24/21 10/13/21 release (Adult Low Dose Aspirin) Previous Rx's Medication Instructions Recorded diclofenac sodium 1 % topical gel 2 g topical QID #100 grams 01/05/22 (Voltaren Arthritis Pain) blood sugar diagnostic (Blood #100 ea 01/12/22 Glucose Test strips) lancets 30 gauge and blood glucose #200 ea 01/12/22 strips combo pack blood-glucose meter (True Metrix #1 ea 02/04/22 Glucose Meter kit) atorvastatin 20 mg tablet See Rx Instructions .Route 04/12/22 .COMPLEX #90 tabs metformin 500 mg tablet,extended See Rx Instructions .Route 04/20/22 release 24 hr .COMPLEX #90 tabs amlodipine 5 mg tablet 5 mg PO DAILY #90 tabs 07/22/22 losartan 100 mg tablet 100 mg PO DAILY #30 tabs 07/22/22 fluticasone propionate 50 2 spray intranasal DAILY #16 grams 07/27/22 mcg/actuation nasal spray,suspension (Flonase Allergy Relief) gabapentin 100 mg capsule 100 mg PO TID #30 caps 11/02/22 (Neurontin) gabapentin 300 mg capsule 300 mg PO TID 30 days #90 caps 11/08/22 Allergies Allergy/AdvReac Type Severity Reaction Status Date / Time No Known Drug Allergies Allergy Verified 11/08/22 12:22 Review of Systems <Kelsey Small PA-C - Last Filed: 11/08/22 18:48> Review of Systems ROS Unobtainable: All systems reviewed & are unremarkable except as noted in HPI and below Constitutional Constitutional: Denies chills, Denies fatigue, Denies fever(s), Denies frequent falls, Denies lethargy and Denies weakness Eyes Eyes: Denies change in vision, Denies eye discharge, Denies irritation and Denies loss of vision ENT Ears, Nose, Mouth, and Throat: Denies change in voice, Denies dizziness, Denies neck pain, Denies sore throat and Denies throat swelling Cardiovascular Cardiovascular: Denies chest pain, Denies irregular heart rhythm, Denies lightheadedness, Denies palpitations, Denies dyspnea, Denies dyspnea on exertion and Denies orthopnea Respiratory Respiratory: Denies cough, Denies dyspnea, Denies dyspnea on exertion and Denies wheezing Gastrointestinal Gastrointestinal: Denies abdominal pain, Denies change in bowel habits, Denies diarrhea, Denies nausea and Denies vomiting Genitourinary Genitourinary: Denies hematuria, Denies flank pain, Denies urinary incontinence and Denies urinary urgency Musculoskeletal Musculoskeletal: Denies back pain, Denies muscle weakness, Denies neck pain, Denies numbness and Denies tingling Comments: Right lower leg pain Integumentary/Breasts Skin/Breast: Denies pruritus, Denies erythema, Denies rash and Denies wounds Neurologic Neurologic: Denies behavioral changes, Denies confusion, Denies dizziness, Denies frequent falls, Denies loss of vision, Denies numbness, Denies tingling and Denies weakness Psychiatric Psychiatric: Denies anxiety, Denies behavioral changes, Denies confusion, Denies depression, Denies homicidal ideation and Denies suicidal ideation Endocrine Endocrine: Denies fatigue, Denies flushing and Denies palpitations Hematologic/Lymphatic Hematologic/Lymphatic: Denies easy bruising Allergic/Immunologic Allergic/Immunologic: Denies urticaria, Denies throat swelling and Denies wheezing Patient History <Kelsey Small PA-C - Last Filed: 11/08/22 18:48> Medical History 3-vessel CAD Cardiac murmur due to mitral valve disorder Cervical radiculopathy Congenital melanocytic nevus Hyperlipidemia, unspecified Mastitis, left, acute Microhematuria Mitral valve disorder Neoplasm of skin Paroxysmal atrial fibrillation Renal cyst, right Surgical History Hx of mitral valve replacement Family History Brother Hypertension High cholesterol Brother Age: 58 Hypertension High cholesterol Father History of kidney cancer Heart disease Hypertension High cholesterol Grandfather Heart disease Mother Hypertension High cholesterol Grandfather Heart disease Sister Age: 68 Hypertension High cholesterol Sister Age: 72 Hypertension High cholesterol Social History Smoking Status: Never smoker Smoking Status: Never smoker alcohol intake frequency: a few times a week Substance Use Type: does not use Exam <Kelsey Small PA-C - Last Filed: 11/08/22 18:48> Narrative Exam Narrative: Const General:?cooperative, healthy appearing and comfortable [facility] Head:?normal to inspection Ears:?hearing grossly normal bilaterally Nose:?external nose normal Face and sinus:?normal facial exam and sinuses nontender Mouth:?oral mucosae normal Throat:?posterior oropharynx normal Eyes General:?appearance normal, both eyes and all related structures Neck Neck:?normal visual inspection and no lymphadenopathy noted Resp Effort & Inspection:?normal respiratory effort Auscultation:?clear to auscultation bilaterally Cardio Rate:?regular rate Rhythm:?regular rhythm Musculoskeletal No swelling, redness, tenderness to palpation. Strength and sensation is intact. Full range of motion. Gait is normal. Patient is neurovascularly intact. Neuro General:?patient alert, patient awake and patient oriented x3 Initial Vital Signs Initial Vital Signs: Vital Signs Temperature 97.5 F L 11/08/22 12:22 Pulse Rate 79 11/08/22 12:22 Respiratory Rate 16 11/08/22 12:22 Blood Pressure 154/83 H 11/08/22 12:22 Pulse Oximetry 99 11/08/22 12:22 Oxygen Delivery Method Room Air 11/08/22 12:22 <Edwige Barnes DO - Last Filed: 11/08/22 19:35> Initial Vital Signs Initial Vital Signs: Vital Signs Temperature 97.5 F L 11/08/22 12:22 Pulse Rate 79 11/08/22 12:22 Respiratory Rate 16 11/08/22 12:22 Blood Pressure 154/83 H 11/08/22 12:22 Pulse Oximetry 99 11/08/22 12:22 Oxygen Delivery Method Room Air 11/08/22 12:22 Course <Kelsey Small PA-C - Last Filed: 11/08/22 18:48> Vital Signs Vital signs: Vital Signs - 8 hr 11/08/22 12:22 Temperature 97.5 F L Pulse Rate 79 Respiratory Rate 16 Blood Pressure 154/83 H Pulse Oximetry 99 Oxygen Delivery Method Room Air <Edwige Barnes DO - Last Filed: 11/08/22 19:35> Vital Signs Vital signs: Vital Signs - 8 hr 11/08/22 12:22 Temperature 97.5 F L Pulse Rate 79 Respiratory Rate 16 Blood Pressure 154/83 H Pulse Oximetry 99 Oxygen Delivery Method Room Air MDM - Extremity (Nontraumatic) <Kelsey Small PA-C - Last Filed: 11/08/22 18:48> MDM Narrative Medical decision making narrative: 67-year-old female with past medical history hyperlipidemia, hypertension, osteoarthritis presents to the ED with right lower leg pain. Patient denies any new trauma. Given that patient had an extensive workup last week, patient's symptoms are still likely from the diabetic neuropathy. Discussed with patient that she could titrate up the gabapentin dosage or I could offer to give her some tramadol for the next 2-3 days until she is able to see her PCP. Patient declined the tramadol since it is an opioid and that could cause her to fall. Patient agrees that upping the gabapentin dosage feels safer for her. Prescribed more gabapentin and increase the dosage to 300 mg 3 times a day. ED return precautions were discussed with patient. Patient verbalized understanding. Medical records reviewed: yes Discharge Plan Departure Patient Disposition: Home Clinical Impression: Leg pain Instructions: DI for Leg Pain Activity Restrictions/Additional Instructions: You were evaluated in the ED today for right lower leg pain. Your symptoms are most likely due to diabetic neuropathy. We recommend you take 300 mg of gabapentin 3 times a day. Please follow-up with your PCP as scheduled in 2 days. Return to the ED if you experience numbness, tingling, weakness. Prescriptions: New gabapentin 300 mg capsule 300 mg PO TID 30 Days Qty: 90 0RF No Action (DME) Blood Glucose Test Strip See Rx Instructions .Route Qty: 100 1RF Rx Instructions: Check Three times a day (DME) lancets-blood glucose strips 30 gauge combo pack See Rx Instructions .Route Qty: 200 0RF Rx Instructions: Check Three times a day (DME) blood-glucose meter [True Metrix Glucose Meter] Kit See Rx Instructions .Route Qty: 1 0RF Rx Instructions: check blood sugar three times daily atorvastatin 20 mg tablet See Rx Instructions .ROUTE .COMPLEX Qty: 90 3RF Dose Instruction: TAKE ONE TABLET BY MOUTH ONCE DAILY Rx Instructions: TAKE ONE TABLET BY MOUTH ONCE DAILY metformin 500 mg tablet extended release 24 hr See Rx Instructions .ROUTE .COMPLEX Qty: 90 3RF Dose Instruction: TAKE ONE TABLET BY MOUTH ONCE DAILY Rx Instructions: TAKE ONE TABLET BY MOUTH ONCE DAILY gabapentin [Neurontin] 100 mg capsule 100 mg PO TID Qty: 30 0RF aspirin [Adult Low Dose Aspirin] 81 mg tablet,delayed release (DR/EC) 81 mg PO DAILY Patient Comments: takes 1/2 Aspirin diclofenac sodium [Voltaren Arthritis Pain] 1 % gel 2 g topical QID Qty: 100 1RF Rx Instructions: apply to single elbow, wrist or hand; for hand includes palm/fingers/back of hand fluticasone propionate [Flonase Allergy Relief] 50 mcg/actuation spray,suspension 2 spray intranasal DAILY Qty: 16 0RF Rx Instructions: administer into each nostril losartan 100 mg tablet 100 mg PO DAILY Qty: 30 11RF amlodipine 5 mg tablet 5 mg PO DAILY Qty: 90 3RF Referrals: Amara Calvo PA-C [Primary Care Provider] - Stand Alone Forms: Patient Portal/API <Edwige Barnes DO - Last Filed: 11/08/22 19:35> Cosign ED Attending aDianaature Attestation: I was immediately available in the department for consultation. Documentation has been reviewed.
== END 2022-11-08 12:50 | disposition home or self-care (01) ==
PROVIDERS: Emergency Provider Student in an Organized Health Care Education/Training Program; Family Provider Family Medicine; PCP Physician Assistant
DX: M79.604 Pain in right leg (principal)
CPT/HCPCS: 99281

== ENCOUNTER → 2022-11-18 11:43 | Outpatient (CLI) | payer MEDICARE, OTHER, SELFPAY ==
[2022-11-18 19:37] LABS: Add Manual Diff / Slide Review NO; Basophils Absolute Auto 100 /uL (0-100); Eosinophils Absolute Auto 100 /uL (0-450); Eosinophils Percent Auto 2.2 % (2-4); Hematocrit 38.5 % (36-46); Hemoglobin 13.1 g/dL (12.0-16.0); Lymphocytes Absolute Auto 1700 /uL (1100-4500); Lymphocytes Percent Auto 30.5 % (25-40); Mean Corpuscular Hemoglobin 30.7 PG (26-34); Mean Corpuscular Volume 90.2 fL (80-100); Monocytes Absolute Auto 500 /uL (0-900); Monocytes Percent Auto 8.2 % (3-14); Neutrophils Absolute Auto 3300 /uL (1500-7000); Neutrophils Percent Auto 58.1 % (50-75); Platelet Count 269 X10^3/uL (150-400); Red Blood Cell Count 4.27 X10^6/uL (4.0-5.2); White Blood Cell Count 5.6 X10^3/uL (4.5-11.0)
[2022-11-18 19:53] LABS: Erythrocyte Sedimentation Rate 7 MM/HR (0-20)
[2022-11-20 01:12] LABS: x Labcorp Estim. Avg Glu (eAG) 148 mg/dL (.); x Labcorp Hemoglobin A1c 6.8 % (4.8-5.6)
== END ==
PROVIDERS: Family Provider Family Medicine; PCP Physician Assistant; Visit Provider Physician Assistant
DX: Z95.2 Presence of prosthetic heart valve; E11.9 Type 2 diabetes mellitus without complications; G62.9 Polyneuropathy, unspecified; M79.606 Pain in leg, unspecified
CPT/HCPCS: 83036; 85025; 85651

== ENCOUNTER → 2023-03-15 11:57 | Outpatient (CLI) | payer MEDICARE, OTHER, SELFPAY ==
[2023-03-15 20:26] LABS: Creatinine Urine Random 74.7 mg/dL
[2023-03-15 20:32] LABS: Microalbumi Creatinin Ratio Ur 101.7 ug/mg CR (<30); Microalbumin Urine Random 7.6 mg/dL (0-1.6)
== END ==
PROVIDERS: Family Provider Family Medicine; PCP Family Medicine; Visit Provider Family Medicine
DX: E11.9 Type 2 diabetes mellitus without complications (principal)
CPT/HCPCS: 82043; 82570

== ENCOUNTER → 2023-04-07 09:51 | Outpatient (CLI) | payer MEDICARE, OTHER, SELFPAY | PROVIDERS: Family Provider Family Medicine; PCP Family Medicine; Visit Provider Family Medicine | DX: R39.89 Other symptoms and signs involving the genitourinary system (principal) | CPT/HCPCS: 87077; 87086; 87186 ==

== ENCOUNTER → 2023-04-26 16:18 | Outpatient (CLI) | payer MEDICARE, OTHER, SELFPAY ==
--- NOTE | 2023-04-26 16:19 | DI.MG.S_ITS ---
BILATERAL DIGITAL SCREENING MAMMOGRAM 3D/2D WITH CAD: 04/26/2023 CLINICAL: Routine screening. Family history of breast cancer. Comparison is made to exams dated: 12/23/2021 mammogram, 10/05/2018 mammogram, 07/02/2016 mammogram - [facility], and 03/07/2013 mammogram - [facility]. Both breasts are extremely dense, which lowers the sensitivity of mammography (category d />75% glandular tissue). Current study was also evaluated with a Computer Aided Detection (CAD) system. There is a biopsy clip in the right breast. No significant masses, calcifications, or other findings are seen in either breast. There has been no significant interval change. IMPRESSION: NEGATIVE There is no mammographic evidence of malignancy. A 1 year screening mammogram is recommended. Based on Tyrer-Cuzick model (a risk assessment model), the patient's lifetime risk is 21.6% and her 10 year risk is 11.8%. If a patient has an elevated risk, a more comprehensive evaluation should be considered and/or a referral to a genetic counselor. The [place] [employer], [employer], and NCCN Guidelines advise the consideration of Breast MRI as an adjunct to screening mammography in patients whose Lifetime risk to develop breast cancer is 20% or higher. This exam was interpreted at Station ID: [id number]. NOTE: For mammograms, a report in lay terms will be sent to the patient. Approximately 15% of breast malignancies will not be visualized mammographically. In the management of a palpable breast mass, a negative mammogram must not discourage biopsy of a clinically suspicious lesion. Electronically Signed By: Bennett macario/phuong:04/27/2023 12:12:12 letter sent: Normal Exam ACR BI-RADS Category 1: Negative [id number]
== END ==
PROVIDERS: Family Provider Family Medicine; PCP Family Medicine; Referring Provider Family Medicine; Visit Provider Family Medicine
DX: Z12.31 Encounter for screening mammogram for malignant neoplasm of breast (principal); Z80.3 Family history of malignant neoplasm of breast
CPT/HCPCS: 77063; 77067

== ENCOUNTER → 2023-07-19 08:56 | Outpatient (CLI) | payer MEDICARE, OTHER, SELFPAY ==
[2023-07-19 09:34] LABS: Estimated Glomerular Filt Rate > 60 mL/min (>60)
--- NOTE | 2023-07-19 10:48 | DI.CT.S_ITS ---
PROCEDURE: CT IVP A/P W/WO INDICATIONS: RENAL CYST/HEMATURIA/HYPERTENSION TECHNIQUE: Optional 5 mm thick noncontrast images acquired from the diaphragm to the symphysis pubis. After the administration of intravenous contrast, 5 mm thick images acquired from the diaphragm to the symphysis pubis after a 10-minute delay. 2 mm thick coronal and sagittal reformats were then performed of the kidneys and ureters. For radiation dose reduction, the following was used: automated exposure control, adjustment of mA and/or kV according to patient size. COMPARISON: None. FINDINGS: Image quality: Diagnostic Lower chest: No basal effusions or dense consolidation. Partially seen cardiac electrode leads. There are coronary calcifications. Suspected scattered liver cysts. Subcentimeter lesions are too small to characterize. Gallbladder and biliary system: The gallbladder is unremarkable. No pathologic biliary ductal dilation. Pancreas: Cystic lesion at the pancreatic head measures 9 millimeters. No ductal dilation. Spleen: Possible splenic granuloma. Nonenlarged spleen Adrenals: No discrete nodules Kidneys: Doms-ee-obrsbfrt left collecting system dilation, also involving the ureter. No discrete filling defect however is identified. No solid renal mass. There are cysts and subcentimeter lesions that are too small to characterize, probably also cysts. No discrete calcified stone seen in the kidneys. In the right interpolar region, there is a 1.3 x 1 centimeter lesion (6/78), with multiple thin septations. This shows about 10 Hounsfield units of possible pseudo enhancement between pre contrast and postcontrast imaging. No discrete nodular soft tissue. The right ureteral jet is clearly seen in the bladder. The right ureter is nondilated, nonfilling may represent peristalsis. Vessels and lymph nodes: Atherosclerotic calcifications. No pathologic lymph nodes by size criteria. There are no aneurysmal vessel is identified. The main portal vein appears patent. Asag-ms-eehxwhkb calcifications of the renal artery origins. Bowel and peritoneum: Small hiatal hernia. No evidence of small bowel obstruction or pathologic abscess/ascites. Body wall: Tiny fat containing umbilical and periumbilical hernia. Pelvis: Bladder is unremarkable. No calcified stones identified. No gross abnormality in the reproductive organs, which are not well evaluated on CT. The endometrium measures 4 millimeters. Bones: Degenerative changes, no acute or suspicious findings. IMPRESSION: No definite solid renal mass. Bosniak 2 F right interpolar region possible cyst with small thin septations. Increase in density following contrast may be due to minimal versus pseudo enhancement. Consider renal mass protocol MRI in 3-6 months. The incidentally noted subcentimeter pancreatic head possible cystic lesion could be followed simultaneously. Mildly dilated left collecting system and ureter, without focal obstructing lesion. The left ureteral jet is clearly seen. The left kidney is larger than the right. In the setting of hematuria, consider further evaluation with cystoscopy. Dpax-br-tzpchcln calcifications in the renal artery origins. Other findings as above. Dictated by: Jeff Camarena M.D. on 07/19/2023 at 12:17 Approved by: Jeff Camarena M.D. on 07/19/2023 at 12:27
== END ==
LOC: CT 08:57
PROVIDERS: Radiology Diagnostic Radiology; Family Provider Family Medicine; PCP Family Medicine; Referring Provider Family Medicine; Visit Provider Family Medicine
DX: N28.1 Cyst of kidney, acquired (principal); I70.1 Atherosclerosis of renal artery; R31.9 Hematuria, unspecified; E11.59 Type 2 diabetes mellitus with other circulatory complications; I15.2 Hypertension secondary to endocrine disorders; I25.10 Atherosclerotic heart disease of native coronary artery without angina pectoris; K86.2 Cyst of pancreas; K44.9 Diaphragmatic hernia without obstruction or gangrene
CPT/HCPCS: 36415; 74178; 82565; Q9967

== ENCOUNTER → 2023-12-21 09:38 | Outpatient (CLI) | payer MEDICARE, OTHER, SELFPAY ==
[2023-12-21 21:01] LABS: Add Manual Diff / Slide Review NO; Basophils Absolute Auto 0 /uL (0-100); Basophils Percent Auto 0.6 % (0-2); Eosinophils Absolute Auto 0 /uL (0-450); Eosinophils Percent Auto 0.1 % (2-4); Hematocrit 38.9 % (36-46); Hemoglobin 13.4 g/dL (12.0-16.0); Lymphocytes Absolute Auto 1500 /uL (1100-4500); Lymphocytes Percent Auto 29.5 % (25-40); Mean Corpuscular HGB Conc 34.5 % (30-36); Mean Corpuscular Hemoglobin 31.1 PG (26-34); Mean Corpuscular Volume 90.2 fL (80-100); Monocytes Absolute Auto 500 /uL (0-900); Monocytes Percent Auto 10.2 % (3-14); Neutrophils Absolute Auto 3000 /uL (1500-7000); Neutrophils Percent Auto 59.6 % (50-75); Platelet Count 183 X10^3/uL (150-400); Red Blood Cell Count 4.32 X10^6/uL (4.0-5.2); Red Cell Distribution Width 13.4 % (11.6-14.8)
[2023-12-21 21:43] LABS: TSH w/ Reflex to FT4 2.32 uIU/mL (0.47-4.68)
[2023-12-21 22:32] LABS: Alanine Aminotransferase 24 IU/L (<35); Albumin Globulin Ratio 1.1 (1.0-2.8); Alkaline Phosphatase 70 U/L (38-126); Aspartate Aminotransferase 46 IU/L (14-36); BUN Creatinine Ratio 20.2 (6-22); Bilirubin Total 0.5 mg/dL (0.2-1.3); Blood Urea Nitrogen 23 mg/dL (7-17); Calcium 8.7 mg/dL (8.4-10.2); Carbon Dioxide 31 mmol/L (22-32); Chloride 96 mmol/L (98-107); Cholesterol 173 mg/dL (140-199); Estimated Glomerular Filt Rate 53 mL/min (>60); Globulin 3.8 g/dL (1.7-4.1); Glucose 165 mg/dL (80-110); HDL Cholesterol 60 mg/dL (40-60); HEMOLYSIS 17 (0-50); LDL Cholesterol Calculated 81 mg/dL (<100); Potassium 3.4 mmol/L (3.4-5.1); Sodium 135 mmol/L (137-145); Total Protein 7.8 g/dL (6.3-8.2); Triglycerides 158 mg/dL (35-150)
[2023-12-21 23:38] LABS: Folate > 20.0 ng/mL (2.76-20.0); Vitamin B12 741 pg/mL (239-931)
== END ==
PROVIDERS: Family Provider Family Medicine; PCP Family Medicine; Visit Provider Family Medicine
DX: R41.3 Other amnesia (principal); E11.9 Type 2 diabetes mellitus without complications; I10 Essential (primary) hypertension
CPT/HCPCS: 80053; 80061; 82607; 82746; 84443; 85025

== ENCOUNTER → 2024-04-05 08:58 | Outpatient (CLI) | payer MEDICARE, OTHER, SELFPAY ==
[2024-04-05 20:52] LABS: Creatinine Urine Random 66.84 mg/dL
[2024-04-05 20:57] LABS: Microalbumin Urine Random 2.6 mg/dL (0-1.6)
== END ==
PROVIDERS: Family Provider Family Medicine; PCP Family Medicine; Visit Provider Family Medicine
DX: R39.89 Other symptoms and signs involving the genitourinary system (principal); R31.9 Hematuria, unspecified; E11.42 Type 2 diabetes mellitus with diabetic polyneuropathy; I10 Essential (primary) hypertension
CPT/HCPCS: 82043; 82570; 87086

== ENCOUNTER → 2024-04-30 09:06 | Outpatient (CLI) | payer MEDICARE, OTHER, SELFPAY ==
--- NOTE | 2024-04-30 09:08 | DI.MG.S_ITS ---
BILATERAL DIGITAL SCREENING MAMMOGRAM 3D/2D WITH CAD: 04/30/2024 CLINICAL: Routine screening. Family history of breast cancer. Comparison is made to exams dated: 04/26/2023 mammogram, 12/23/2021 mammogram, and 10/05/2018 mammogram - . The breasts are extremely dense, which lowers the sensitivity of mammography (category d />75% glandular tissue). Current study was also evaluated with a Computer Aided Detection (CAD) system. There is a biopsy clip in the right breast. No significant masses, calcifications, or other findings are seen in either breast. There has been no significant interval change. IMPRESSION: NEGATIVE There is no mammographic evidence of malignancy. A 1 year screening mammogram is recommended. Based on Tyrer-Cuzick model (a risk assessment model), the patient's lifetime risk is 20.5% and her 10 year risk is 11.8%. If a patient has an elevated risk, a more comprehensive evaluation should be considered and/or a referral to a genetic counselor. The [employer], [employer], and NCCN Guidelines advise the consideration of Breast MRI as an adjunct to screening mammography in patients whose Lifetime risk to develop breast cancer is 20% or higher. This exam was interpreted at Station ID: [id number]. NOTE: For mammograms, a report in lay terms will be sent to the patient. Approximately 15% of breast malignancies will not be visualized mammographically. In the management of a palpable breast mass, a negative mammogram must not discourage biopsy of a clinically suspicious lesion. Electronically Signed By: Mykel reyes/phuong:04/30/2024 17:03:38 letter sent: Normal Exam ACR BI-RADS Category 1: Negative
--- NOTE | 2024-04-30 09:09 | DI.RAD.S_ITS ---
PROCEDURE: XR DEXA AXIAL SKELETON INDICATIONS: [facility]. FINDINGS: Lumbar Spine: L1-L4. Bone mineral density 0.863 g/cm2, T score -1.7. Left Hip: Bone mineral density 0.788 g/cm2, T score -1.3. Left Femoral Neck: Bone mineral density 0.715 g/cm2, T score -1.2. Right Hip: Bone mineral density 0.844 g/cm2, T score -0.8. Right Femoral Neck: Bone mineral density 0.759 g/cm2, T score -0.8. Fracture Risk Calculation (when applicable): 10-year fracture risk of a major osteoporotic fracture 8.9 percent and of a hip fracture 0.9 percent. (T score greater or equal to -1.0 to: NORMAL) (T score from -1.1 to -2.4: OSTEOPENIA) (T score less than or equal to -2.5: OSTEOPOROSIS) IMPRESSION: Osteopenia. Follow-up guidelines as follows: Osteoporosis: Consider a repeat DEXA and Vertebral Fracture Assessment (VFA) exam in 2 years or sooner if medically necessary, to reassess this patient's status. Osteopenia: Consider a repeat DEXA in 2-3 years to reassess this patient's status, or if there is a new clinical indication. Normal: Consider a repeat DEXA in 5 years or sooner, or if there is a new clinical indication. All treatment decisions require clinical judgment and consideration of individual patient factors, including patient preferences, comorbidities, previous drug use, risk factors not captured in the FRAX model (e.g., frailty, falls, vitamin D deficiency, increased bone turnover, interval significant decline in bone density ) and possible under- or over-estimation of fracture risk by FRAX. In addition, the NOF Guide recommends that FDA-approved medical therapies be considered in postmenopausal women and men age >= 50 years with a: * Hip or vertebral (clinical or morphometric) fracture * T-score of <=-2.5 at the spine or hip * Ten-year fracture probability by FRAX of >= 3% for hip fracture or >=20% for major osteoporotic fracture. People with diagnosed cases of osteoporosis or at high risk for fracture should have regular bone mineral density tests. For patients eligible for Medicare, routine testing is allowed once every 2 years. The testing frequency can be increased to one year for patients who have rapidly progressing disease, those who are receiving or discontinuing medical therapy to restore bone mass, or have additional risk factors. Dictated by: Bennett Trinh M.D. on 04/30/2024 at 18:33 Approved by: Bennett Trinh M.D. on 04/30/2024 at 18:35
== END ==
LOC: MAMMO 09:07
PROVIDERS: Family Provider Family Medicine; PCP Family Medicine; Referring Provider Family Medicine; Visit Provider Family Medicine
DX: Z12.31 Encounter for screening mammogram for malignant neoplasm of breast (principal); Z12.39 Encounter for other screening for malignant neoplasm of breast; M85.89 Other specified disorders of bone density and structure, multiple sites; Z78.0 Asymptomatic menopausal state; R92.30 Dense breasts, unspecified; Z80.3 Family history of malignant neoplasm of breast; Z97.8 Presence of other specified devices
CPT/HCPCS: 77063; 77067; 77080

== ENCOUNTER → 2024-06-15 10:23 | Outpatient (CLI) | payer MEDICARE, OTHER, SELFPAY ==
[2024-06-15 19:34] LABS: Alanine Aminotransferase 23 IU/L (<35); Albumin 4.5 g/dL (3.5-5.0); Albumin Globulin Ratio 1.3 (1.0-2.8); Alkaline Phosphatase 69 U/L (38-126); Aspartate Aminotransferase 31 IU/L (14-36); Bilirubin Total 0.7 mg/dL (0.2-1.3); Blood Urea Nitrogen 23 mg/dL (7-17); Calcium 9.6 mg/dL (8.4-10.2); Carbon Dioxide 28 mmol/L (22-32); Chloride 99 mmol/L (98-107); Estimated Glomerular Filt Rate > 60 mL/min (>60); Globulin 3.5 g/dL (1.7-4.1); Glucose 181 mg/dL (80-110); HEMOLYSIS 17 (0-50); Potassium 4.2 mmol/L (3.4-5.1); Sodium 136 mmol/L (137-145)
== END ==
PROVIDERS: Family Provider Family Medicine; PCP Family Medicine; Visit Provider Family Medicine
DX: E11.42 Type 2 diabetes mellitus with diabetic polyneuropathy (principal); I10 Essential (primary) hypertension; R94.4 Abnormal results of kidney function studies
CPT/HCPCS: 80053

== ENCOUNTER → 2024-10-25 08:59 | Outpatient (CLI) | payer MEDICARE, OTHER, SELFPAY ==
--- NOTE | 2024-10-25 09:02 | DI.MRI.S_ITS ---
PROCEDURE: MR ABDOMEN RENAL PROTOCOL INDICATIONS: hematuria persistent, cyst kidney, pancreas? CT scan 07/2023 TECHNIQUE: Coronal HASTE through abdomen and pelvis; axial 2D FLASH in- and pgb-ym-vmnlv (with and without fat saturation), and breath-hold T2 FSE from the hepatic dome to the bottom of the kidneys. Coronal HASTE MR urogram of kidneys and bladder. Dynamic coronal VIBE during IV gadolinium administration; postgadolinium axial VIBE or 2D FLASH with fat saturation from the hepatic dome through the kidneys. COMPARISON: [facility], CT, CT IVP A/P W/WO, 07/19/2023, 10:51. FINDINGS: Image quality: Diagnostic. Kidneys and Ureters: There is no hydronephrosis. There is a 1.1 cm focus in the interpolar region of the right kidney with low T2 and high T1 signal on the unenhanced images. No definite internal enhancement. OTHER: Lung bases: Unremarkable. Liver: No solid mass. Gallbladder: No gallstones or wall thickening. Biliary ducts: No biliary dilation. Pancreas: There is a cystic lesion in the head measuring approximately 1.2 cm as well as a tubular shaped fluid containing structure seen extending proximally into the neck and uncinate process measuring up to 5 mm in diameter and 4.5 cm in length. No definite diffusion restriction or abnormal enhancement. Spleen: Size is within normal limits. Adrenal Glands: No adrenal nodules. Stomach and Bowel: Normal colonic caliber, without significant wall thickening. Peritoneum: No abnormal intraperitoneal fluid. No free air. Ventral Wall: No hernia. Abdominal Nodes: No retroperitoneal or mesenteric adenopathy by size criteria. Vessels: Aorta and inferior vena cava are normal in size. Bones: No aggressive osseous abnormality. IMPRESSION: 1. Findings most suggestive of small hemorrhagic cyst in the interpolar region of the right kidney. No suspicious renal parenchymal lesion seen. 2. 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 No definite suspicious morphological features at this time. Follow-up study may be obtained in 1 year. Dictated by: Calixto Hamilton M.D. on 10/25/2024 at 15:33 Approved by: Calixto Hamilton M.D. on 10/25/2024 at 15:46
--- NOTE | 2024-10-25 09:02 | DI.RAD.S_ITS ---
PROCEDURE: XR CERVICAL SPINE 2V OR 3V INDICATIONS: Cervical radiculopathy TECHNIQUE: 3 view(s) of the cervical spine were acquired. COMPARISON: None. FINDINGS: Bones: There is partial loss of cervical lordosis. There is mild C4 retrolisthesis. No focal osseous lesion seen. Significant degenerative disc disease at C4-C5. There is also facet arthropathy in the midcervical region bilaterally. Soft tissues: No prevertebral soft tissue swelling. IMPRESSION: Loss of cervical lordosis, mild spondylolisthesis as well as degenerative disease. No focal osseous lesion seen. Dictated by: Calixto Hamilton M.D. on 10/25/2024 at 19:31 Approved by: Calixto Hamilton M.D. on 10/25/2024 at 19:33
== END ==
LOC: MRI 09:00
PROVIDERS: Family Provider Family Medicine; PCP Family Medicine; Referring Provider Family Medicine; Visit Provider Family Medicine
DX: N28.1 Cyst of kidney, acquired (principal); R93.5 Abnormal findings on diagnostic imaging of other abdominal regions, including retroperitoneum; M54.12 Radiculopathy, cervical region
CPT/HCPCS: 72040; 74183; A9579

== ENCOUNTER → 2024-12-17 09:26 | Outpatient (CLI) | payer MEDICARE, OTHER, SELFPAY ==
[2024-12-17 19:31] LABS: Add Manual Diff / Slide Review NO; Hematocrit 37.9 % (36-46); Hemoglobin 13.1 g/dL (12.0-16.0); Lymphocytes Absolute Auto 700 /uL (1100-4500); Mean Corpuscular HGB Conc 34.6 % (30-36); Mean Corpuscular Hemoglobin 31.8 PG (26-34); Mean Corpuscular Volume 92.1 fL (80-100); Platelet Count 246 X10^3/uL (150-400)
[2024-12-17 19:40] LABS: Alanine Aminotransferase 26 IU/L (<35); Albumin 4.3 g/dL (3.5-5.0); Albumin Globulin Ratio 1.3 (1.0-2.8); Alkaline Phosphatase 73 U/L (38-126); Blood Urea Nitrogen 21 mg/dL (7-17); Calcium 9.2 mg/dL (8.4-10.2); Carbon Dioxide 28 mmol/L (22-32); Chloride 98 mmol/L (98-107); Cholesterol 178 mg/dL (140-199); Estimated Glomerular Filt Rate 59 mL/min (>60); Globulin 3.4 g/dL (1.7-4.1); Glucose 150 mg/dL (70-99); HDL Cholesterol 55 mg/dL (40-60); HEMOLYSIS < 15 (0-50); Potassium 3.7 mmol/L (3.4-5.1); Sodium 134 mmol/L (137-145); Total Protein 7.7 g/dL (6.3-8.2); Triglycerides 112 mg/dL (35-150)
[2024-12-17 20:08] LABS: Thyroid Stimulating Hormone 0.598 uIU/mL (0.47-4.68)
== END ==
PROVIDERS: Family Provider Family Medicine; PCP Family Medicine; Visit Provider Family Medicine
DX: E11.29 Type 2 diabetes mellitus with other diabetic kidney complication (principal); R80.9 Proteinuria, unspecified; R94.4 Abnormal results of kidney function studies; R42 Dizziness and giddiness; I10 Essential (primary) hypertension
CPT/HCPCS: 80053; 80061; 84443; 85025

== ENCOUNTER 2025-03-04 12:35 | Emergency (ER) | payer MEDICARE, OTHER, SELFPAY ==
[2025-03-04 12:39] VITALS: BP 113/68; PULSE 87; RESP 18; TEMP 36.6; O2SAT 97; BMI 24.7
--- NOTE | 2025-03-04 13:11 | DI.RAD.S_ITS ---
PROCEDURE: XR LUMBAR SPINE 2-3V INDICATIONS: lumbar and RLE radicular pain TECHNIQUE: 3 views of the lumbar spine were acquired. COMPARISON: [facility] ([place]), CR, XR LUMBAR SPINE 2- 3V, 11/10/2022, 10:54. FINDINGS: Bones: 5 vol-bxm-supsapk vertebrae are present. There is straightening of normal lumbar lordosis. Degenerative endplate changes are noted throughout lumbar spine. No acute vertebral body compression fractures. No suspicious bony lesions. Soft tissues: Overlying bowel gas pattern is normal. No suspicious soft tissue calcifications. IMPRESSION: No acute vertebral body compression fracture or spondylolisthesis. Eacq-ge-totftvrr spondylitic changes throughout lumbar spine. Dictated by: Tan Interiaon M.D. on 03/04/2025 at 13:32 Approved by: Tan Interiano M.D. on 03/04/2025 at 13:33
--- NOTE | 2025-03-04 14:03 | ED_ITS ---
HPI - Back Pain/Injury <Yaa Gómez PA-C - Last Filed: 03/04/25 15:59> General Chief Complaint: Back Pain/Injury Stated Complaint: nerve pain sent by [facility] Time Seen by Provider: 03/04/25 13:58 Source: patient History of Present Illness HPI Narrative: Ms. Easley is a pleasant 70-year-old female with a past medical history of gfj-soezthu-ndsstzvda type 2 diabetes, HTN, CAD, neuropathy, hyperlipidemia presents to emergency department for low back pain and right leg tingling x3 weeks. Patient was sent from the walk-in clinic for further evaluation. Patient saw her PCP on 02/26/2025 and was diagnosed with lumbar radiculopathy and sent a referral for physical therapy, started on nightly gabapentin, and advised to start using a TENS unit. Patient has actually been using 300 mg of gabapentin 3 times a day which does help temporarily however she is running out of this medication. She saw a chiropractor 3 times who diagnosed her with a impingement of L3-L4 nerve. Patient describes pain as starting on the right side of the low back and radiating to the anterior thigh and down the leg. No saddle anesthesia, bowel or bladder incontinence or retention, fevers, chills, history of IV drug use, weakness. She is ambulating with a cane. She does have physical therapy starting in 1 week. No fall or trauma precipitating the pain. Related Data Home Medications ?Medication ?Instructions ?Recorded ?Confirmed aspirin 81 mg tablet,delayed 81 mg PO DAILY 02/24/21 0 03/08/25 release (Adult Low Dose Aspirin) fluticasone propionate 50 2 spray intranasal DAILY PRN 03/15/23 03/08/25 mcg/actuation nasal spray,suspension (Flonase Allergy Relief) Previous Rx's ?Medication ?Instructions ?Recorded lancets 30 gauge and blood glucose #200 ea 01/12/22 strips combo pack blood-glucose meter (True Metrix #1 ea 02/04/22 Glucose Meter kit) blood sugar diagnostic (Blood #100 ea 06/21/23 Glucose Test strips) atorvastatin 20 mg tablet 20 mg .Route .COMPLEX choles terol. 05/09/24 prevents heart attack and stroke. #90 tabs metformin 500 mg tablet,extended 500 mg PO BID for jeyson betes #180 10/24/24 release 24 hr tabs spironolactone 25 mg tablet 25 mg PO QAM for blood pre ssure. 11/27/24 take every day even if normal. #90 tabs amlodipine 5 mg tablet 5 mg PO DAILY for blood pres sure. 12/18/24 take every day even if normal. #90 tabs losartan 100 1 tab PO QAM for BP. take ev tom 12/18/24 mg-hydrochlorothiazide 12.5 mg day even if normal #90 tabs tablet gabapentin 300 mg capsule 300 mg PO TID PRN nerve pain #30 03/04/25 caps hydrocodone 5 mg-acetaminophen 325 1 tab PO Q4-6H PRN pain #12 tabs 03/04/25 mg tablet lidocaine 5 % topical patch 1 patch topical DAILY #30 ea 03/04/25 (Lidoderm) prednisone 20 mg tablet 40 mg (2 x 20 mg) PO DAILY # 10 tabs 03/08/25 Allergies Allergy/AdvReac Type Severity Reaction Status Date / Time No Known Drug Allergies Allergy Verified 03/08/25 16:04 Review of Systems <Yaa Gómez PA-C - Last Filed: 03/04/25 15:59> Review of Systems ROS Unobtainable: All systems reviewed & are unremarkable except as noted in HPI and below Patient History <Yaa Gómez PA-C - Last Filed: 03/04/25 15:59> Medical History Pancreas neoplasm Neoplasm of skin Mastitis, left, acute Congenital melanocytic nevus Cervical radiculopathy 3-vessel CAD Renal cyst, right Microhematuria Hyperlipidemia, unspecified Paroxysmal atrial fibrillation Mitral valve disorder Surgical History Hx of mitral valve replacement Family History Brother Hypertension High cholesterol Brother Age: 60 Hypertension High cholesterol Father History of kidney cancer Heart disease Hypertension High cholesterol Grandfather Heart disease Mother Hypertension High cholesterol Grandfather Heart disease Sister Age: 70 Hypertension High cholesterol Sister Age: 74 Hypertension High cholesterol Social History Smoking Status: Former smoker Smoking Status: Never smoker alcohol intake frequency: a few times a week Exam <Yaa Gómez PA-C - Last Filed: 03/04/25 15:59> Narrative Exam Narrative: GENERAL: 70 year old patient appears stated age. Well-developed patient, in no acute distress. HEAD: Atraumatic. Normocephalic. EYES: No scleral icterus. No injection or drainage. NECK: Trachea midline. Cervical ROM intact. CARDIOVASCULAR: Regular rate RESPIRATORY: ?Nonlabored respirations. ?Speaking in clear, full sentences. EXTREMITIES: 2+ DP and PT pulses BL. 5/5 plantar and dorsiflexion strength. SITLT BL inner thighs. BACK: Nontender without deformity or crepitance. NEURO: AOx3. ?Clear speech. ?Ambulates independently with cane SKIN: No rash or erythema of visible areas Initial Vital Signs Initial Vital Signs: Vital Signs Temperature 97.8 F 03/04/25 12:39 Pulse Rate 87 03/04/25 12:39 Respiratory Rate 18 03/04/25 12:39 Blood Pressure 113/68 03/04/25 12:39 Pulse Oximetry 97 03/04/25 12:39 Oxygen Delivery Method Room Air 03/04/25 12:39 <Edwige Barnes DO - Last Filed: 03/10/25 20:45> Initial Vital Signs Initial Vital Signs: Vital Signs Temperature 97.8 F 03/04/25 12:39 Pulse Rate 87 03/04/25 12:39 Respiratory Rate 18 03/04/25 12:39 Blood Pressure 113/68 03/04/25 12:39 Pulse Oximetry 97 03/04/25 12:39 Oxygen Delivery Method Room Air 03/04/25 12:39 Course <Yaa Gómez PA-C - Last Filed: 03/04/25 15:59> Orders Ordered: Discontinued Medications Hydrocodone Bitart/Acetaminophen (Hydrocodone/Acet 5/325 Tablet) 1 tab PO NOW ONE Stop: 03/04/25 14:36 Last Admin: 03/04/25 14:51 Dose: 1 tab Documented By: ESPERANZA Ketorolac Tromethamine (Ketorolac 30 Mg/Ml Vial) 15 mg IM NOW ONE Stop: 03/04/25 14:36 Last Admin: 03/04/25 14:51 Dose: 15 mg Documented By: SB Vital Signs Vital signs: Vital Signs - 8 hr 03/04/25 12:39 03/04/25 15:19 Temperature 97.8 F Pulse Rate 87 76 Respiratory Rate 18 16 Blood Pressure 113/68 110/61 Pulse Oximetry 97 97 Oxygen Delivery Method Room Air Room Air <Edwige Barnes DO - Last Filed: 03/10/25 20:45> Orders Ordered: Discontinued Medications Hydrocodone Bitart/Acetaminophen (Hydrocodone/Acet 5/325 Tablet) 1 tab PO NOW ONE Stop: 03/04/25 14:36 Last Admin: 03/04/25 14:51 Dose: 1 tab Documented By: ESPERANZA Ketorolac Tromethamine (Ketorolac 30 Mg/Ml Vial) 15 mg IM NOW ONE Stop: 03/04/25 14:36 Last Admin: 03/04/25 14:51 Dose: 15 mg Documented By: SB Vital Signs Vital signs: Vital Signs - 8 hr 03/04/25 12:39 03/04/25 15:19 Temperature 97.8 F Pulse Rate 87 76 Respiratory Rate 18 16 Blood Pressure 113/68 110/61 Pulse Oximetry 97 97 Oxygen Delivery Method Room Air Room Air MDM - Back Pain/Injury <Yaa Gómez PA-C - Last Filed: 03/04/25 15:59> Medical Records Attestation: I reviewed the patient's medical records. Imaging Data Lumbar XR: Radiologist's Impression: PROCEDURE: XR LUMBAR SPINE 2-3V INDICATIONS: lumbar and RLE radicular pain TECHNIQUE: 3 views of the lumbar spine were acquired. COMPARISON: [facility] [place], [place], [place]R LUMBAR SPINE 2- 3V, 11/10/2022, 10:54. FINDINGS: Bones: 5 bbh-bif-[id number] vertebrae are present. There is straightening of normal lumbar lordosis. Degenerative endplate changes are noted throughout lumbar spine. No acute vertebral body compression fractures. No suspicious bony lesions. Soft tissues: Overlying bowel gas pattern is normal. No suspicious soft tissue calcifications. IMPRESSION: No acute vertebral body compression fracture or spondylolisthesis. [id number] spondylitic changes throughout lumbar spine. Dictated by: Tan Interiano M.D. on 03/04/2025 at 13:32 Approved by: Tan Interiano M.D. on 03/04/2025 at 13:33 [facility] Narrative Medical decision making narrative: 70-year-old female with a past medical history of tjp-iqvozyd-vzvjwtrll type 2 diabetes, HTN, CAD, neuropathy, hyperlipidemia presents to emergency department for low back pain and right leg tingling x3 weeks. Differential diagnosis includes but is not limited to lumbar radiculopathy, spinal stenosis, arthritis, herniated disc, bulging disc, compression fracture, lumbar strain, etc. On exam patient is in no acute distress, nontoxic-appearing, all vital signs within normal limits. Her lower extremities are neurovascularly intact and she is ambulatory. No bowel or bladder dysfunction, saddle anesthesia or fevers. No direct trauma. Given patient age and comorbidities, X-ray obtained revealing straightening of the normal lumbar lordosis and degenerative endplate changes noted throughout the lumbar spine. No acute vertebral body compression fracture or spondylolisthesis. Discussed multimodal treatment with the patient for lumbar radiculopathy. Due to the severity of her pain at this time, we will treat with 1 time dose of 15 mg Toradol IM, 5 mg hydrocodone-acetaminophen. Discussed risks of narcotics. I did refill her gabapentin 300 mg t.i.d., also lidocaine patches which are helpful for her and also recommended the use of Tylenol, 10s unit, heat therapy, physical therapy. Advised to follow up with orthopedic spine surgeon for further management possible injections. Discussed that more advanced imaging we will need to be done outpatient through PCP or ortho. Discussed strict ER return precautions. Patient and her verbalized understanding of all information agreeable with the plan. She is ambulatory and stable for discharge home. Discharge Plan Departure Patient Disposition: Home Clinical Impression: Lumbar radiculopathy, acute DDD (degenerative disc disease), lumbar Qualifiers: Disc-related pain type: discogenic back pain and lower extremity pain Qualified Code(s): M51.362 - Other intervertebral disc degeneration, lumbar region with discogenic back pain and lower extremity pain Instructions: DI for Lumbar Radiculopathy Activity Restrictions/Additional Instructions: Dear Ary Easley, Thank you for coming to the emergency department. Today you were evaluated for back and lower extremity pain. Your x-ray did reveal straightening of the normal lumbar curvature in addition to degenerative changes throughout the entire lumbar spine. These changes can cause nerve compression/irritation. As we discussed, please use gabapentin 3 times a day in addition to Tylenol. Please use the topical numbing patches and the topical TENS unit. Stretching and heat therapy can also be helpful. You have been prescribed a short course of hydrocodone-acetaminophen, also known as Carlotta, which is an opioid pain medication. Please use this only for severe breakthrough pain, this can be used at night as it will make you drowsy. Please follow up with your primary care doctor, I do recommend that you follow up with an orthopedic spine surgeon for further management. Return to the emergency department immediately if you develop any new or worsening symptoms, bowel or bladder dysfunction, inability to walk, fevers or other concerns. You have been prescribed a short course of narcotic medications. These are potentially dangerous and addictive medications that should be used carefully. While on these medications you cannot drive or operate heavy machinery. Additionally, you cannot sign legal documents or perform any duties such as this. Many people get constipated on narcotic medications so it would be advisab le to discuss stool softeners with the pharmacist when you peanut picker your prescription. Please understand that we cannot provide further refills of narcotics or controlled substances through the ED and your pain management will need to be through your Primary Care Provider Please follow up with your primary care doctor within the next 2-3 days for ER follow-up. (If you do not have a PCP you can call [phone]. ?to schedule an appointment with an [facility] Primary Care Provider) IF YOU DEVELOP ANY NEW OR WORSENING SYMPTOMS, RETURN TO THE ER! Please read the attached instructions, they highlight more specific treatments and interventions for you at home. Thank you for letting me participate in your care, Yaa Gómez PA-C Prescriptions: New gabapentin 300 mg capsule 300 mg PO TID PRN (Reason: nerve pain) Qty: 30 0RF hydrocodone-acetaminophen 5-325 mg tablet 1 tab PO Q4-6H PRN (Reason: pain) Qty: 12 0RF lidocaine [Lidoderm] 5 % adhesive patch,medicated 1 patch topical DAILY Qty: 30 0RF Rx Instructions: leave on most painful area for up to 12 hrs No Action (DME) lancets-blood glucose strips 30 gauge combo pack See Rx Instructions .Route Qty: 200 0RF Rx Instructions: Check Three times a day (DME) blood-glucose meter [True Metrix Glucose Meter] Kit See Rx Instructions .Route Qty: 1 0RF Rx Instructions: check blood sugar three times daily atorvastatin 20 mg tablet 20 mg .ROUTE .COMPLEX Qty: 90 3RF Rx Instructions: 20 mg; metformin 500 mg tablet extended release 24 hr 500 mg PO BID Qty: 180 1RF Rx Instructions: Increase dose to twice a day spironolactone 25 mg tablet 25 mg PO QAM Qty: 90 1RF Rx Instructions: take in am with your other BP medications: amlodipine, losartan, hydrochlorathiazide. goal blood pressure is 120/80 or less. losartan-hydrochlorothiazide 100-12.5 mg tablet 1 tab PO QAM Qty: 90 1RF Rx Instructions: stop losartan 100mg- start combo medication amlodipine 5 mg tablet 5 mg PO DAILY Qty: 90 1RF Rx Instructions: stop 10mg tab aspirin [Adult Low Dose Aspirin] 81 mg tablet,delayed release (DR/EC) 81 mg PO DAILY Patient Comments: takes 1/2 Aspirin (DME) Blood Glucose Test Strip See Rx Instructions .Route Qty: 100 1RF Rx Instructions: once per day fluticasone propionate [Flonase Allergy Relief] 50 mcg/actuation spray,suspension 2 spray intranasal DAILY PRN Rx Instructions: administer into each nostril prednisone 20 mg tablet 40 mg PO DAILY Qty: 10 0RF Referrals: Rosario Aguilar MD [Primary Care Provider, Family Practice] Stand Alone Forms: Patient Portal/API ED Sign-out <Edwige Barnes DO - Last Filed: 03/10/25 20:45> Cosign ED Attending Daianaature Attestation: I was immediately available in the department for consultation.
[2025-03-04] MEDS: KETOROLAC 30 MG/ML VIAL 15 MG IM (14:51)
[2025-03-04 15:19] VITALS: BP 110/61; PULSE 76; RESP 16; O2SAT 97
== END 2025-03-04 15:22 | disposition home or self-care (01) ==
PROVIDERS: Emergency Provider Physician Assistant; Family Provider Family Medicine; PCP Family Medicine
DX: M54.16 Radiculopathy, lumbar region (principal); M51.362 Other intervertebral disc degeneration, lumbar region with discogenic back pain and lower extremity pain
CPT/HCPCS: 72100; 96372; 99283; J1885

== ENCOUNTER → 2025-04-04 11:52 | Outpatient (CLI) | payer MEDICARE, OTHER, SELFPAY ==
[2025-04-04 19:03] LABS: Add Manual Diff / Slide Review NO; Hematocrit 42.0 % (36-46); Hemoglobin 14.3 g/dL (12.0-16.0); Lymphocytes Absolute Auto 1900 /uL (1100-4500); Mean Corpuscular HGB Conc 33.9 % (30-36); Mean Corpuscular Hemoglobin 31.5 PG (26-34); Mean Corpuscular Volume 92.8 fL (80-100); Platelet Count 258 X10^3/uL (150-400)
== END ==
PROVIDERS: Family Provider Family Medicine; PCP Family Medicine; Visit Provider Family Medicine
DX: M54.9 Dorsalgia, unspecified (principal)
CPT/HCPCS: 82784; 83883; 84155; 84165; 85025; 85651; 86140; 86334

== ENCOUNTER → 2025-05-14 09:04 | Outpatient (CLI) | payer MEDICARE, OTHER, SELFPAY ==
--- NOTE | 2025-05-14 09:05 | DI.MRI.S_ITS ---
PROCEDURE: MR LUMBAR SPINE WO CON INDICATIONS: persistent lumbar radiculopathy , L5 TECHNIQUE: Noncontrast sagittal T1 spin echo and T2 fast echo, sagittal STIR, and T2 fast spin echo through the lumbar spine. In cases with scoliosis, additional coronal T2 fast spin echo may be performed. COMPARISON: [facility], CR, XR LUMBAR SPINE 2-3V, 03/04/2025, 13:06. FINDINGS: Image quality: Excellent. Alignment and Curvature: There is normal bony alignment. Bone Marrow: Marrow is of normal overall signal. No acute vertebral body compression fractures. Spinal Cord: Conus medullaris terminates at the L1 level. Visualized cord demonstrates normal signal and size. Paraspinous Soft Tissues: No paravertebral masses. T12-L1: Disc desiccation. No significant disc bulge, canal stenosis or neural foraminal narrowing. L1-L2: Normal appearance. L2-L3: Loss of disc height and disc desiccation. Diffuse disc bulge and bilateral facet arthrosis with hypertrophy of ligamentum flavum. Mild central canal stenosis and [id number]-[id number] bilateral neural foraminal narrowing is seen slightly worse on the left side. L3-L4: Loss of disc height and disc desiccation. Diffuse disc bulge and central to left-sided disc herniation with bilateral facet arthrosis and hypertrophy of ligamentum flavum causing dzop-hy-yowirirx central canal stenosis, moderate to severe left- sided neural foraminal narrowing and mild right-sided neural foraminal narrowing. Bulging disc is seen contacting left L3 nerve root. L4-L5: Loss of disc height. Broad-based disc bulge and bilateral facet arthrosis with hypertrophy of ligamentum flavum. No cysts and moderate bilateral neural foraminal narrowing is seen. Bulging disc likely contacting bilateral exiting L4 nerve roots. L5-S1: Low disc desiccation and loss of disc height. Diffuse disc bulge and left lateral disc herniation with bilateral facet arthrosis. Moderate left-sided neural foraminal narrowing is seen with bulging disc contacting left L5 nerve root. IMPRESSION: 1. No marrow edema. No acute compression fracture or spondylolisthesis. 2. [id number] degenerative disc disease throughout lumbar spine causing various degrees of central canal stenosis and bilateral neural foraminal narrowing as described above. Dictated by: Tan Interiano M.D. on 05/14/2025 at 10:55 Approved by: Tan Interiano M.D. on 05/14/2025 at 10:58
== END ==
LOC: MRI 09:04
PROVIDERS: Family Provider Family Medicine; PCP Family Medicine; Referring Provider Family Medicine; Visit Provider Family Medicine
DX: M51.16 Intervertebral disc disorders with radiculopathy, lumbar region (principal); M51.17 Intervertebral disc disorders with radiculopathy, lumbosacral region; M48.061 Spinal stenosis, lumbar region without neurogenic claudication; M48.07 Spinal stenosis, lumbosacral region
CPT/HCPCS: 72148